=== PATIENT | male | born 1935 | race Caucasian/White ===

== ENCOUNTER 2017-02-07 06:18 | Day surgery (SDC) | payer MEDICARE, OTHER ==
[2017-02-07] MEDS ORDERED: ceFAZolin 2 GM/50 ML 50 ML IV ONE (06:24)
[2017-02-07] MEDS ORDERED: LACTATED RINGERS 1,000 ML IV ONE (06:55)
[2017-02-07] MEDS ORDERED: LIDOCAINE 1% 50 ML MDV SUBQ ONE ×2 (08:25)
[2017-02-07] MEDS ORDERED: BUPIVACAINE 0.5% PF 30 ML VIAL SUBQ ONE ×2 (08:25)
[2017-02-07] MEDS ORDERED: fentaNYL 100 MCG/2 ML VIAL IVP ONE (08:33)
[2017-02-07] MEDS ORDERED: LIDOCAINE-MPF 2% 5 ML VIAL IM ONE (08:33)
[2017-02-07] MEDS ORDERED: PROPOFOL 200 MG/20 ML VIAL IVP ONE (08:33)
[2017-02-07] MEDS ORDERED: ACETAMINOPHEN 1,000 MG/100 ML VIAL IV ONE (08:33)
== END 2017-02-07 06:19 | disposition home or self-care (01) ==
PROC: 01N50ZZ Release Median Nerve, Open Approach (ICD-10-PCS; principal; 2017-02-07 07:30)
DX: G56.01 Carpal tunnel syndrome, right upper limb (principal); E78.5 Hyperlipidemia, unspecified; F17.290 Nicotine dependence, other tobacco product, uncomplicated; I25.10 Atherosclerotic heart disease of native coronary artery without angina pectoris; I25.2 Old myocardial infarction; I10 Essential (primary) hypertension; K21.9 Gastro-esophageal reflux disease without esophagitis; Z79.82 Long term (current) use of aspirin; Z95.1 Presence of aortocoronary bypass graft; Z95.5 Presence of coronary angioplasty implant and graft
CPT/HCPCS: 64721; 80048; 85025; J0131; J0690; J7120

== ENCOUNTER 2017-07-11 08:53 | Outpatient (CLI) | payer MEDICARE, OTHER ==
[2017-07-11 13:08] LABS: BASOPHILS % (AUTO) 0.3 %; EOSINOPHILS % (AUTO) 1.2 %; HCT - HEMATOCRIT 36.7 % (42.0-52.0); HGB - HEMOGLOBIN 12.3 g/dL (14.0-18.0); LYMPHOCYTES # (AUTO) 1.1 10^3/uL (1.5-3.5); LYMPHOCYTES % (AUTO) 26.4 %; MEAN CORPUSCULAR HEMOGLOBIN 32.8 pg (27.0-31.0); MEAN CORPUSCULAR HGB CONC 33.5 g/dL (32.0-36.0); MEAN PLATELET VOLUME 9.1 fL (7.4-11.4); MONOCYTES # (AUTO) 0.5 10^3/uL (0.0-1.0); MONOCYTES % (AUTO) 13.3 %; NEUTROPHILS # (AUTO) 2.3 10^3/uL (1.5-6.6); NEUTROPHILS % (AUTO) 58.8 %; RED BLOOD COUNT 3.75 10^6/uL (4.70-6.10); RED CELL DISTRIBUTION WIDTH 13.8 % (12.0-15.0)
[2017-07-11 13:40] LABS: PSA FREE 1.3 ng/mL (0.16-2.81)
[2017-07-11 13:41] LABS: PSA TOTAL 15.97 ng/mL (0.000-2.000)
[2017-07-11 14:03] LABS: ALBUMIN/GLOBULIN RATIO 2.3 (1.0-2.2); BILIRUBIN,TOTAL 0.6 mg/dL (0.2-1.0); BUN - BLOOD UREA NITROGEN 26 mg/dL (6-20); CALCIUM 9.1 mg/dL (8.5-10.3); CARBON DIOXIDE - CO2 30 mmol/L (21-32); CHLORIDE 105 mmol/L (101-111); CHOL/HDL RATIO 2.4 (<5.0); CHOLESTEROL 132 mg/dL; CREATININE 1.3 mg/dL (0.6-1.2); GFR - MDRD 53 (>89); GLUCOSE 122 mg/dL (70-100); HDL CHOLESTEROL 54 mg/dL; LDL/HDL RATIO 1.1 (<3.6); POTASSIUM 4.2 mmol/L (3.5-5.0); SODIUM 142 mmol/L (135-145); TOTAL PROTEIN 6.2 g/dL (6.7-8.2); TRIGLYCERIDES 79 mg/dL; VLDL CHOLESTEROL 16 mg/dL
== END 2017-07-11 08:54 | disposition home or self-care (01) ==
LOC: LAB.WCP 08:53
PROVIDERS: ATTEND Family Medicine
DX: R73.01 Impaired fasting glucose (principal); E78.5 Hyperlipidemia, unspecified; D64.9 Anemia, unspecified; R97.20 Elevated prostate specific antigen [PSA]
CPT/HCPCS: 36415; 80053; 80061; 84154; 85025

== ENCOUNTER 2017-09-26 09:00 | Outpatient (CLI) | payer MEDICARE, OTHER | END 2017-09-26 09:01 | disposition home or self-care (01) | LOC: LAB.WCP 09:00 | PROVIDERS: ATTEND Urology | DX: R97.20 Elevated prostate specific antigen [PSA] (principal) | CPT/HCPCS: 36415; 84153; 84403 ==

== ENCOUNTER 2017-12-20 08:24 | Outpatient (CLI) | payer MEDICARE, OTHER ==
[2017-12-20 12:56] LABS: HB2 TOTAL 12.8 g/dL; HEMOGLOBIN A1C 0.35 g/dL; HEMOGLOBIN A1C % 4.7 % (4.6-6.2)
[2017-12-20 12:58] LABS: PSA TOTAL 0.51 ng/mL (0.000-2.000)
[2017-12-20 13:05] LABS: ALBUMIN 4.1 g/dL (3.2-5.5); ALBUMIN/GLOBULIN RATIO 1.9 (1.0-2.2); BILIRUBIN,TOTAL 0.5 mg/dL (0.2-1.0); CREATININE 1.2 mg/dL (0.6-1.2); TOTAL PROTEIN 6.3 g/dL (6.7-8.2)
== END 2017-12-20 08:25 | disposition home or self-care (01) ==
LOC: LAB.WCP 08:24
PROVIDERS: ATTEND Family Medicine
DX: I25.10 Atherosclerotic heart disease of native coronary artery without angina pectoris (principal); R73.01 Impaired fasting glucose; C61 Malignant neoplasm of prostate; K21.9 Gastro-esophageal reflux disease without esophagitis; R97.20 Elevated prostate specific antigen [PSA]
CPT/HCPCS: 36415; 80053; 83036; 84153; 84403

== ENCOUNTER 2018-06-26 08:00 | Outpatient (CLI) | payer MEDICARE, OTHER | END 2018-06-26 08:01 | disposition home or self-care (01) | LOC: LAB.WCP 08:00 | PROVIDERS: ATTEND Urology | DX: R97.20 Elevated prostate specific antigen [PSA] (principal) | CPT/HCPCS: 36415; 84153 ==

== ENCOUNTER 2018-07-26 09:45 | Outpatient (CLI) | payer MEDICARE, OTHER ==
[2018-07-26 12:54] LABS: BASOPHILS % (AUTO) 0.4 %; EOSINOPHILS # (AUTO) 0.1 10^3/uL (0.0-0.7); HGB - HEMOGLOBIN 11.2 g/dL (14.0-18.0); LYMPHOCYTES % (AUTO) 26.5 %; MEAN CORPUSCULAR HEMOGLOBIN 32.6 pg (27.0-31.0); MEAN CORPUSCULAR HGB CONC 33.8 g/dL (32.0-36.0); MEAN CORPUSCULAR VOLUME 96.6 fL (80.0-94.0); MONOCYTES # (AUTO) 0.4 10^3/uL (0.0-1.0); MONOCYTES % (AUTO) 12.4 %; NEUTROPHILS # (AUTO) 2.1 10^3/uL (1.5-6.6); NEUTROPHILS % (AUTO) 58.7 %; PLT - PLATELET COUNT 204 10^3/uL (130-450); RED BLOOD COUNT 3.44 10^6/uL (4.70-6.10); RED CELL DISTRIBUTION WIDTH 13.5 % (12.0-15.0); WHITE BLOOD COUNT 3.6 x10^3/uL (4.8-10.8)
[2018-07-26 13:02] LABS: ALBUMIN 4.1 g/dL (3.2-5.5); ALKALINE PHOSPHATASE 27 IU/L (42-121); ALT ALANINE AMINOTRANSFERASE 21 IU/L (10-60); AST ASPARTATE AMINOTRANSFERASE 28 IU/L (10-42); BILIRUBIN,TOTAL 0.6 mg/dL (0.2-1.0); BUN - BLOOD UREA NITROGEN 20 mg/dL (6-20); CALCIUM 9.3 mg/dL (8.5-10.3); CARBON DIOXIDE - CO2 24 mmol/L (21-32); CHLORIDE 107 mmol/L (101-111); CREATININE 1.1 mg/dL (0.6-1.2); GFR - MDRD 64 (>89); GLUCOSE 112 mg/dL (70-100); SODIUM 141 mmol/L (135-145); TOTAL PROTEIN 6.1 g/dL (6.7-8.2)
[2018-07-26 13:29] LABS: HB2 TOTAL 11.1 g/dL; HEMOGLOBIN A1C 0.25 g/dL; HEMOGLOBIN A1C % 4.2 % (4.6-6.2)
== END 2018-07-26 09:46 | disposition home or self-care (01) ==
LOC: LAB.WCP 09:45
PROVIDERS: ATTEND Family Medicine
DX: C61 Malignant neoplasm of prostate (principal); R73.01 Impaired fasting glucose; I10 Essential (primary) hypertension; M06.9 Rheumatoid arthritis, unspecified; E78.5 Hyperlipidemia, unspecified
CPT/HCPCS: 36415; 80053; 83036; 84443; 85025

== ENCOUNTER 2018-08-29 22:57 | Outpatient (CLI) | payer MEDICARE, OTHER ==
[2018-08-29 13:28] LABS: RHEUMATOID FACTOR POSITIVE (Negative)
[2018-08-29 13:36] LABS: CRP - C-REACTIVE PROTEIN < 1.0 mg/dL (0-1.0)
[2018-08-29 13:38] LABS: % IRON SATURATION 20 % (20-50); IRON 82 ug/dL (45-182); TOTAL IRON BINDING CAPACITY 419 ug/dL (250-450); TRANSFERRIN 299 mg/dL (180-329); URIC ACID 3.1 mg/dL (2.6-7.2)
== END 2018-08-29 22:58 | disposition home or self-care (01) ==
LOC: LAB.WCP 22:57
PROVIDERS: ATTEND Family Medicine
DX: D50.9 Iron deficiency anemia, unspecified (principal); M06.9 Rheumatoid arthritis, unspecified
CPT/HCPCS: 36415; 82728; 83540; 84466; 84550; 85651; 86038; 86140; 86200; 86430

== ENCOUNTER 2019-01-03 12:51 | Outpatient (CLI) | payer MEDICARE, OTHER | END 2019-01-03 12:52 | disposition home or self-care (01) | LOC: LAB.WCP 12:51 | PROVIDERS: ATTEND Urology | DX: C61 Malignant neoplasm of prostate (principal) | CPT/HCPCS: 36415; 84153; 84154 ==

== ENCOUNTER 2019-03-23 08:00 | Outpatient (CLI) | payer MEDICARE, OTHER ==
[2019-03-23 12:36] LABS: BASOPHILS % (AUTO) 0.6 %; EOSINOPHILS % (AUTO) 1.2 %; HGB - HEMOGLOBIN 10.2 g/dL (14.0-18.0); LYMPHOCYTES # (AUTO) 0.9 10^3/uL (1.5-3.5); LYMPHOCYTES % (AUTO) 25.3 %; MEAN CORPUSCULAR HEMOGLOBIN 28.8 pg (27.0-31.0); MEAN CORPUSCULAR VOLUME 89.7 fL (80.0-94.0); MEAN PLATELET VOLUME 8.8 fL (7.4-11.4); MONOCYTES # (AUTO) 0.5 10^3/uL (0.0-1.0); MONOCYTES % (AUTO) 13.1 %; NEUTROPHILS # (AUTO) 2.1 10^3/uL (1.5-6.6); NEUTROPHILS % (AUTO) 59.8 %; PLT - PLATELET COUNT 209 10^3/uL (130-450); RED BLOOD COUNT 3.53 10^6/uL (4.70-6.10); WHITE BLOOD COUNT 3.5 x10^3/uL (4.8-10.8)
[2019-03-23 13:02] LABS: ALBUMIN 3.8 g/dL (3.2-5.5); ALBUMIN/GLOBULIN RATIO 1.7 (1.0-2.2); BILIRUBIN,TOTAL 0.6 mg/dL (0.2-1.0); CALCIUM 8.9 mg/dL (8.5-10.3); TOTAL PROTEIN 6.1 g/dL (6.7-8.2)
== END 2019-03-23 23:59 | disposition home or self-care (01) ==
LOC: LAB.WCP 08:00
PROVIDERS: ATTEND Family Medicine
DX: D12.6 Benign neoplasm of colon, unspecified (principal); D50.9 Iron deficiency anemia, unspecified; M06.9 Rheumatoid arthritis, unspecified; C61 Malignant neoplasm of prostate; I10 Essential (primary) hypertension; I25.10 Atherosclerotic heart disease of native coronary artery without angina pectoris
CPT/HCPCS: 36415; 80053; 85025

== ENCOUNTER 2019-04-13 08:00 | Outpatient (CLI) | payer MEDICARE, OTHER ==
[2019-04-13 18:43] LABS: BASOPHILS % (AUTO) 0.2 %; EOSINOPHILS % (AUTO) 0.9 %; HGB - HEMOGLOBIN 9.6 g/dL (14.0-18.0); LYMPHOCYTES % (AUTO) 26.8 %; MEAN CORPUSCULAR HEMOGLOBIN 28.4 pg (27.0-31.0); MEAN CORPUSCULAR HGB CONC 31.9 g/dL (32.0-36.0); MONOCYTES # (AUTO) 0.4 10^3/uL (0.0-1.0); MONOCYTES % (AUTO) 10.6 %; NEUTROPHILS # (AUTO) 2.3 10^3/uL (1.5-6.6); NEUTROPHILS % (AUTO) 61.5 %; PLT - PLATELET COUNT 197 10^3/uL (130-450); RED BLOOD COUNT 3.38 10^6/uL (4.70-6.10); RED CELL DISTRIBUTION WIDTH 15.2 % (12.0-15.0); WHITE BLOOD COUNT 3.8 x10^3/uL (4.8-10.8)
[2019-04-13 19:00] LABS: ALBUMIN 3.8 g/dL (3.2-5.5); BILIRUBIN,TOTAL 0.6 mg/dL (0.2-1.0); CALCIUM 8.7 mg/dL (8.5-10.3); CREATININE 1.1 mg/dL (0.6-1.2); TOTAL PROTEIN 5.7 g/dL (6.7-8.2)
[2019-04-13 19:35] LABS: % IRON SATURATION 15 % (20-50); IRON 64 ug/dL (45-182); TOTAL IRON BINDING CAPACITY 413 ug/dL (250-450); TRANSFERRIN 295 mg/dL (180-329)
== END 2019-04-13 23:59 | disposition home or self-care (01) ==
LOC: LAB.WCP 08:00
PROVIDERS: ATTEND Internal Medicine Rheumatology
DX: D50.9 Iron deficiency anemia, unspecified (principal); M05.79 Rheumatoid arthritis with rheumatoid factor of multiple sites without organ or systems involvement; Z79.899 Other long term (current) drug therapy
CPT/HCPCS: 36415; 80053; 82728; 83540; 84466; 85025

== ENCOUNTER 2019-06-26 08:00 | Outpatient (CLI) | payer MEDICARE, OTHER ==
[2019-06-26 19:05] LABS: BASOPHILS % (AUTO) 0.2 %; EOSINOPHILS # (AUTO) 0.1 10^3/uL (0.0-0.7); EOSINOPHILS % (AUTO) 1.2 %; HGB - HEMOGLOBIN 11.1 g/dL (14.0-18.0); LYMPHOCYTES % (AUTO) 23.6 %; MEAN CORPUSCULAR HGB CONC 31.7 g/dL (32.0-36.0); MEAN CORPUSCULAR VOLUME 100.9 fL (80.0-94.0); MEAN PLATELET VOLUME 10.7 fL (7.4-11.4); MONOCYTES # (AUTO) 0.5 10^3/uL (0.0-1.0); MONOCYTES % (AUTO) 11.9 %; NEUTROPHILS # (AUTO) 2.6 10^3/uL (1.5-6.6); NEUTROPHILS % (AUTO) 62.9 %; PLT - PLATELET COUNT 199 10^3/uL (130-450); RED BLOOD COUNT 3.47 10^6/uL (4.70-6.10); RED CELL DISTRIBUTION WIDTH 14.4 % (12.0-15.0); WHITE BLOOD COUNT 4.2 x10^3/uL (4.8-10.8)
[2019-06-26 19:31] LABS: ALBUMIN 4.1 g/dL (3.2-5.5); BILIRUBIN,TOTAL 0.5 mg/dL (0.2-1.0); CALCIUM 9.2 mg/dL (8.5-10.3); TOTAL PROTEIN 6.1 g/dL (6.7-8.2)
[2019-06-26 20:15] LABS: % IRON SATURATION 47 % (20-50); IRON 177 ug/dL (45-182); TOTAL IRON BINDING CAPACITY 378 ug/dL (250-450); TRANSFERRIN 270 mg/dL (180-329)
== END 2019-06-26 23:59 | disposition home or self-care (01) ==
LOC: LAB.WCP 08:00
PROVIDERS: ATTEND Internal Medicine Rheumatology
DX: D50.9 Iron deficiency anemia, unspecified (principal); M05.79 Rheumatoid arthritis with rheumatoid factor of multiple sites without organ or systems involvement; Z79.899 Other long term (current) drug therapy
CPT/HCPCS: 36415; 80053; 82728; 83540; 84466; 85025

== ENCOUNTER 2019-07-17 08:00 | Outpatient (CLI) | payer MEDICARE, OTHER | END 2019-07-17 23:59 | disposition home or self-care (01) | LOC: LAB.WCP 08:00 | PROVIDERS: ATTEND Urology | DX: C61 Malignant neoplasm of prostate (principal) | CPT/HCPCS: 36415; 84153 ==

== ENCOUNTER 2019-07-31 08:00 | Outpatient (CLI) | payer MEDICARE, OTHER ==
[2019-07-31 13:00] LABS: CHOL/HDL RATIO 2.6 (<5.0); CHOLESTEROL 141 mg/dL; HDL CHOLESTEROL 55 mg/dL; LDL CHOLESTEROL,CALCULATED 64 mg/dL; LDL/HDL RATIO 1.2 (<3.6); VLDL CHOLESTEROL 22 mg/dL
== END 2019-07-31 23:59 | disposition home or self-care (01) ==
LOC: LAB.WCP 08:00
PROVIDERS: ATTEND Family Medicine
DX: I25.10 Atherosclerotic heart disease of native coronary artery without angina pectoris (principal); E78.5 Hyperlipidemia, unspecified
CPT/HCPCS: 36415; 80061; 83721

== ENCOUNTER 2019-09-11 06:19 | Day surgery (SDC) | payer MEDICARE, OTHER ==
[2019-09-11] MEDS ORDERED: LACTATED RINGERS 1,000 ML IV ONE ×2 (06:50→08:05)
[2019-09-11] MEDS ORDERED: LIDO GARGLE 30 ML BOTTLE ONE (07:05)
[2019-09-11] MEDS ORDERED: LIDO GARGLE 30 ML BOTTLE PO ONE ×2 (07:09→07:33)
[2019-09-11] MEDS ORDERED: MIDAZOLAM 2 MG/2 ML VIAL IVP ONE (07:34)
[2019-09-11] MEDS ORDERED: fentaNYL 250 MCG/5 ML VIAL IVP ONE (07:34)
[2019-09-11 09:56] VITALS: BP 143/74
== END 2019-09-11 06:20 | disposition home or self-care (01) ==
LOC: SDS 06:19
PROVIDERS: ATTEND Internal Medicine Gastroenterology
PROC: 0DB78ZX Excision of Stomach, Pylorus, Via Natural or Artificial Opening Endoscopic, Diagnostic (ICD-10-PCS; 2019-09-11)
PROC: 0DB68ZZ Excision of Stomach, Via Natural or Artificial Opening Endoscopic (ICD-10-PCS; 2019-09-11)
PROC: 0DBH8ZZ Excision of Cecum, Via Natural or Artificial Opening Endoscopic (ICD-10-PCS; principal; 2019-09-11 07:30)
PROC: 0DB98ZX Excision of Duodenum, Via Natural or Artificial Opening Endoscopic, Diagnostic (ICD-10-PCS; 2019-09-11 07:30)
DX: D50.9 Iron deficiency anemia, unspecified (principal); D12.0 Benign neoplasm of cecum; K57.30 Diverticulosis of large intestine without perforation or abscess without bleeding; K29.50 Unspecified chronic gastritis without bleeding; K31.7 Polyp of stomach and duodenum; K21.9 Gastro-esophageal reflux disease without esophagitis; E66.9 Obesity, unspecified; I10 Essential (primary) hypertension; I25.10 Atherosclerotic heart disease of native coronary artery without angina pectoris; F17.290 Nicotine dependence, other tobacco product, uncomplicated; Z79.899 Other long term (current) drug therapy; Z79.82 Long term (current) use of aspirin; Z95.1 Presence of aortocoronary bypass graft; Z95.5 Presence of coronary angioplasty implant and graft; Z80.0 Family history of malignant neoplasm of digestive organs; Z68.36 Body mass index [BMI] 36.0-36.9, adult
CPT/HCPCS: 43239; 45380; 87081; A9270; J3010; J7120

== ENCOUNTER 2019-10-02 13:42 | Outpatient (CLI) | payer MEDICARE, OTHER ==
[2019-10-02] MEDS ORDERED: IOVERSOL 320 100 ML VIAL IVP ONE ×2 (13:47→14:59)
[2019-10-02] MEDS ORDERED: IOVERSOL 320 50 ML VIAL ONE (13:47)
[2019-10-02 14:26] LABS: CREATININE 1.1 mg/dL (0.6-1.2)
[2019-10-02] MEDS ORDERED: IOVERSOL 320 50 ML VIAL PO ONE (14:59)
--- NOTE | 2019-10-03 15:49 | CT Report ---
Reason: ANEMIA IRON DEFICIENCY Procedure Date: 10/02/2019 Accession Number: [id number] / [id number] Procedure: CT - Abdomen/Pelvis W CPT Code: Final Report FULL RESULT: EXAM: CT ABDOMEN AND PELVIS EXAM DATE: 10/02/2019 02:58 PM. CLINICAL HISTORY: Anemia iron deficiency. COMPARISONS: None. TECHNIQUE: Routine helical CT imaging was performed through the abdomen and pelvis. IV contrast: Optiray-320 100 mL. Enteric contrast: Yes. Reconstructions: Coronal and sagittal. In accordance with CT protocol optimization, one or more of the following dose reduction techniques were utilized for this exam: automated exposure control, adjustment of mA and/or KV based on patient size, or use of iterative reconstructive technique. FINDINGS: Lung Bases: Unremarkable. Mild to moderate coronary artery calcifications. Borderline cardiac enlargement. Liver: Mild diffuse decreased density is consistent with fatty infiltration. There is a benign bilobed cyst, or 2 abutting cysts, within the left lobe measuring up to 4.9 cm. There are numerous additional very small focal hypodensities many of which are too small to definitely characterize but likely all represent cysts. No definite masses. Gallbladder/Bile Ducts: The gallbladder is contracted and contains a 2.1 cm stone. No surrounding inflammation or biliary ductal dilatation demonstrated. Spleen: There is a 4.0 x 4.3 cm cystic lesion with some linear and nodular calcifications within its wall and some mild peripheral septation that is probably calcified. No definite soft tissue nodular components. This is of undocumented age but likely represents a benign finding such as prior infection or hemorrhage. Pancreas: Normal. Adrenal Glands: Normal. Kidneys: 1.5 cm left upper pole cyst. No masses or hydronephrosis. Peritoneal Cavity/Bowel: No free fluid, free air or adenopathy. No masses or acute inflammatory process.The appendix is well visualized and normal. Colonic diverticulosis without evidence of diverticulitis. Pelvic Organs: Mild prostate prominence with heterogeneous enhancement including an area of more focal anterior right enhancement measuring approximately 3.2 cm. The bladder appears unremarkable. Vasculature: Moderate calcifications, without aneurysm. Bones: Degenerative disease of the spine, SI joints and less so the hips and the pubic symphysis with apparent cystic posterior capsular distention at the level of the pubic symphysis. Other: None. IMPRESSION: 1. No definite acute abnormality of the abdomen or pelvis. 2. Complex, peripherally calcified 4.3 cm cystic splenic lesion likely represents a benign finding, as discussed above, although it is of undocumented chronicity. 3. Mildly prominent prostate with heterogeneous, nodular enhancement. 4. Cholelithiasis. 5. Chronic findings, as above. RADIA
== END 2019-10-02 13:43 | disposition home or self-care (01) ==
LOC: DI 13:42
PROVIDERS: ATTEND Internal Medicine Gastroenterology
DX: D50.9 Iron deficiency anemia, unspecified (principal); D73.4 Cyst of spleen; N40.0 Benign prostatic hyperplasia without lower urinary tract symptoms; K80.20 Calculus of gallbladder without cholecystitis without obstruction
CPT/HCPCS: 36415; 74177; 82565; Q9967

== ENCOUNTER 2020-06-25 08:12 | Emergency (ER) | payer MEDICARE, OTHER ==
--- NOTE | 2020-06-25 08:38 | ED Physician Documentation ---
PD HPI DYSPNEA - Stated complaint Stated Complaint: SOA - Chief complaint Chief Complaint: Resp - History obtained from History obtained from: Patient - History of Present Illness Timing - onset: How many days ago (couple of days of increasing dyspnea, worse this morning. Improved enroute here.) Timing - onset during: No: Exertion Timing - duration: Days Timing - details: Gradual onset, Still present Inciting event(s): No: Out of meds, URI, Immobilization/travel Worsened by: Exertion, Laying flat Associated symptoms: Bilateral edema (chronic with some increase recently). No: Fever, Cough, Wheezing Similar symptoms before: Has not had sx before Recently seen: Clinic (had low K and so was started on supplement and had Lasix decreased 40 mg to 20 mg few weeks ago.) Review of Systems Constitutional: denies: Fever, Chills, Myalgias Nose: denies: Rhinorrhea / runny nose, Congestion Throat: denies: Sore throat Respiratory: denies: Cough GI: denies: Nausea, Vomiting, Diarrhea, Bloody / black stool Musculoskeletal: reports: Extremity swelling Neurologic: denies: Generalized weakness, Focal weakness, Numbness, Altered mental status, Headache PD PAST MEDICAL HISTORY - Past Medical History Cardiovascular: Hypertension, High cholesterol, Coronary artery disease, [place] Respiratory: None Endocrine/Autoimmune: None GI: GERD, Hiatal hernia, Colon polyps : Benign prostate hypertrophy HEENT: Chronic vision loss Psych: None Musculoskeletal: Osteoarthritis, Rheumatoid arthritis, Chronic back pain Derm: Other - Past Surgical History General: Colonoscopy, Other Ortho: Knee replacement Cardiovascular: CABG, Coronary stent HEENT: Cataracts, Tonsil/Adenoidectomy - Present Medications Home Medications: Ambulatory Orders Medication Instructions Recorded Confirmed lisinopriL [Zestril] 20 mg PO BID 01/18/14 09/10/19 Fenofibrate 160 mg PO QDAC 03/01/14 09/11/19 Finasteride 5 mg PO QDAC 03/01/14 09/11/19 Furosemide [Lasix] 1 mg PO DAILY 03/01/14 09/11/19 Esomeprazole Magnesium [Nexium] 40 mg PO DAILY 03/04/14 09/11/19 Rosuvastatin [Crestor] 10 mg PO DAILY 03/04/14 09/11/19 sulfaSALAzine [Azulfidine] 1,000 mg PO BID 03/04/14 09/10/19 Carvedilol [Coreg] 25 mg PO BID 06/12/14 09/10/19 amLODIPine [Norvasc] 5 mg PO DAILY 09/10/16 09/11/19 hydrALAZINE [Apresoline] 25 mg PO BID 09/10/16 09/11/19 Ferrous Gluconate [Iron] 240 mg PO DAILY 09/10/19 09/11/19 Leuprolide [Lupron] 7.5 mg IM DAILY 09/10/19 09/11/19 Aspirin [Adult Aspirin Regimen] 1 DAILY 09/11/19 - Allergies Allergies/Adverse Reactions: Allergies Allergy/AdvReac Type Severity Reaction Status Date / Time atorvastatin calcium * Allergy Severe Anaphylaxis Verified 06/25/20 08:34 [From Lipitor] amoxicillin [Amoxicillin] Allergy Intermediate Rash Verified 06/25/20 08:34 PD ED PE NORMAL - Vitals Vital signs reviewed: Yes - General General: Alert and oriented X 3, No acute distress, Well developed/nourished - HEENT HEENT: Pharynx benign - Neck Neck: Supple, no meningeal sign, No adenopathy - Cardiac Cardiac: RRR, No murmur - Respiratory Respiratory: Other (no coarse sounds; some fine crackles in the bases.) - Abdomen Abdomen: Soft, Non tender - Derm Derm: Normal color, Warm and dry - Extremities Extremities: No tenderness to palpate, Normal ROM s pain, No calf tenderness / cord, Other (2+ edema in both legs from knees down. No redness/rash.) - Neuro Neuro: Alert and oriented X 3, No motor deficit, Normal speech Results - Vitals Vitals: Vital Signs - 24 hr 06/25/20 06/25/20 06/25/20 08:25 09:42 10:33 Temperature 36.5 C Heart Rate 68 73 75 Respiratory 24 22 22 Rate Blood Pressure 184/90 H 184/86 H O2 Saturation 96 96 06/25/20 11:25 Temperature 36.8 C Heart Rate 65 Respiratory 21 Rate Blood Pressure 130/89 H O2 Saturation 95 Oxygen O2 Source [With Activity] Room air O2 Source [Without Activity] Room air O2 Source Room air - EKG (time done) 08:24 Rate: Rate (enter#) (68) Rhythm: NSR [place]: Normal Intervals: Normal DC, Other (frequent PVCs) QRS: Normal Ischemia: Normal ST segments. No: ST elevation c/w ischemia, ST depression - Labs Labs: Laboratory Tests 06/25/20 06/25/20 06/25/20 09:00 09:00 09:00 WBC 4.1 L RBC 3.08 L Hgb 10.2 L Hct 31.6 L MCV 102.6 H MCH 33.1 H MCHC 32.3 RDW 13.4 Plt Count 179 MPV 10.7 Neut # (Auto) 2.9 Lymph # (Auto) 0.7 L Hughes # (Auto) 0.4 Eos # (Auto) 0.0 Baso # (Auto) 0.0 Absolute Nucleated RBC 0.00 Nucleated RBC % 0.0 Sodium 140 Potassium 3.5 Chloride 108 Carbon Dioxide 21 Anion Gap 11.0 BUN 24 H Creatinine 1.1 Estimated GFR (MDRD) 63 L Glucose 120 H Calcium 8.9 Magnesium 1.8 Total Bilirubin 0.9 AST 28 ALT 22 Alkaline Phosphatase 26 L Troponin I High Sens 17.7 B-Natriuretic Peptide Total Protein 5.5 L Albumin 3.9 Globulin 1.6 L Albumin/Globulin Ratio 2.4 H Lipase 37 06/25/20 09:00 WBC RBC Hgb Hct MCV MCH MCHC RDW Plt Count MPV Neut # (Auto) Lymph # (Auto) Hughes # (Auto) Eos # (Auto) Baso # (Auto) Absolute Nucleated RBC Nucleated RBC % Sodium Potassium Chloride Carbon Dioxide Anion Gap BUN Creatinine Estimated GFR (MDRD) Glucose Calcium Magnesium Total Bilirubin AST ALT Alkaline Phosphatase Troponin I High Sens B-Natriuretic Peptide 1260 H Total Protein Albumin Globulin Albumin/Globulin Ratio Lipase - Rads (name of study) chest xray Radiology: Prelim report reviewed (no infiltrates; some increased vascular congestion), See rad report PD MEDICAL DECISION MAKING - ED course Complexity details: reviewed results, re-evaluated patient, considered differential (consider lung such as asthma, versus infectious. He does have history of CAD and had been on higher Lasix (recently decreased from 40 to 20 mg daily) so may be fluid accumulations, as does have leg edema. ), d/w patient Departure - Departure Disposition: 01 Home, Self Care Clinical Impression: Dyspnea Qualifiers: Dyspnea type: dyspnea on exertion Qualified Code(s): R06.00 - Dyspnea, unspecified Congestive heart failure Qualifiers: Heart failure type: unspecified Heart failure chronicity: acute on chronic Qualified Code(s): I50.9 - Heart failure, unspecified Condition: Stable Record reviewed to determine appropriate education?: Yes Instructions: ED CHF General Follow-Up: Sudeep Larios MD [Primary Care Provider] - Comments: Your chest x-ray does not show any signs of pneumonia or acute infection. It does look like some fluid accumulation in your blood test would correlate with that. So looks like some congestive heart failure. I would increase your furosemide back to 40 mg daily. Follow-up with your primary care next week, call today for an appointment. Return if not improving well over the next several days or if worsening. Discharge Date/Time: 06/25/20 11:25
[2020-06-25] MEDS ORDERED: ALBUTEROL 1 PUFF INH STA (09:00)
--- NOTE | 2020-06-25 09:05 | XRAY Report ---
PROCEDURE: Chest 1 View X-Ray INDICATIONS: Chest pain TECHNIQUE: One view of the chest was acquired. COMPARISON: FINDINGS: Surgical changes and devices: Sternotomy wires, probable prior CABG.. Lungs and pleura: No pleural effusions or pneumothorax. Lungs are mildly abnormal, with a mild degr ee of interstitial prominence in this patient with global cardiomegaly. This may reflect a slight deg ree of congestive heart failure but also could simply represent interstitial prominence from prior sm oking history, for example.. Mediastinum: Mediastinal contours appear normal. Heart size is globally enlarged. Bones and chest wall: No suspicious bony lesions. Overlying soft tissues appear unremarkable. IMPRESSION: Global cardiomegaly, prior CABG. Suspect chronic CHF with possible superimposed slight acute exacerba tion. Reviewed by: Luis Alfredo Rudd MD on 06/25/2020 9:04 AM PDT Approved by: Luis Alfredo Rudd MD on 06/25/2020 9:04 AM PDT Station ID: [id number]
[2020-06-25 09:11] LABS: BASOPHILS % (AUTO) 0.2 %; EOSINOPHILS % (AUTO) 0.7 %; HGB - HEMOGLOBIN 10.2 g/dL (14.0-18.0); LYMPHOCYTES # (AUTO) 0.7 10^3/uL (1.5-3.5); LYMPHOCYTES % (AUTO) 18.1 %; MEAN CORPUSCULAR HEMOGLOBIN 33.1 pg (27.0-31.0); MEAN CORPUSCULAR HGB CONC 32.3 g/dL (32.0-36.0); MEAN CORPUSCULAR VOLUME 102.6 fL (80.0-94.0); MEAN PLATELET VOLUME 10.7 fL (7.4-11.4); MONOCYTES # (AUTO) 0.4 10^3/uL (0.0-1.0); MONOCYTES % (AUTO) 10.5 %; NEUTROPHILS # (AUTO) 2.9 10^3/uL (1.5-6.6); NEUTROPHILS % (AUTO) 70.3 %; PLT - PLATELET COUNT 179 10^3/uL (130-450); RED BLOOD COUNT 3.08 10^6/uL (4.70-6.10); RED CELL DISTRIBUTION WIDTH 13.4 % (12.0-15.0); WHITE BLOOD COUNT 4.1 x10^3/uL (4.8-10.8)
[2020-06-25] MEDS ORDERED: FUROSEMIDE 20 MG/2 ML VIAL IVP STA (09:23)
[2020-06-25 09:43] LABS: ALBUMIN 3.9 g/dL (3.2-5.5); ALBUMIN/GLOBULIN RATIO 2.4 (1.0-2.2); BILIRUBIN,TOTAL 0.9 mg/dL (0.2-1.0); CALCIUM 8.9 mg/dL (8.5-10.3); CREATININE 1.1 mg/dL (0.6-1.2); MAGNESIUM 1.8 mg/dL (1.7-2.8); TOTAL PROTEIN 5.5 g/dL (6.7-8.2)
[2020-06-25 11:27] VITALS: BP 130/89
== END 2020-06-25 11:25 | disposition home or self-care (01) ==
LOC: ED 08:12
DX: I50.9 Heart failure, unspecified (principal); I11.0 Hypertensive heart disease with heart failure
CPT/HCPCS: 36415; 71045; 80053; 83690; 83735; 83880; 84484; 85025; 93005; 94640; 96374; 99284

== ENCOUNTER 2020-07-09 08:00 | Outpatient (CLI) | payer MEDICARE, OTHER ==
[2020-07-09 11:44] LABS: HGB - HEMOGLOBIN 10.1 g/dL (14.0-18.0); MEAN CORPUSCULAR HEMOGLOBIN 31.7 pg (27.0-31.0); MEAN CORPUSCULAR HGB CONC 31.9 g/dL (32.0-36.0); MEAN CORPUSCULAR VOLUME 99.4 fL (80.0-94.0); MEAN PLATELET VOLUME 10.9 fL (7.4-11.4); RED BLOOD COUNT 3.19 10^6/uL (4.70-6.10); RED CELL DISTRIBUTION WIDTH 13.1 % (12.0-15.0); WHITE BLOOD COUNT 4.2 x10^3/uL (4.8-10.8)
[2020-07-09 11:55] LABS: CALCIUM 8.8 mg/dL (8.5-10.3); CREATININE 1.2 mg/dL (0.6-1.2)
== END 2020-07-09 08:01 | disposition home or self-care (01) ==
LOC: LAB.WCP 08:00
PROVIDERS: ATTEND Family Medicine
DX: I50.9 Heart failure, unspecified (principal); C61 Malignant neoplasm of prostate
CPT/HCPCS: 36415; 80048; 83880; 84153; 85027

== ENCOUNTER 2020-07-15 10:13 | Outpatient (CLI) | payer MEDICARE, OTHER | END 2020-07-15 10:14 | disposition home or self-care (01) | LOC: DI 10:13 | PROVIDERS: ATTEND Family Medicine | DX: I27.20 Pulmonary hypertension, unspecified (principal); I34.0 Nonrheumatic mitral (valve) insufficiency; R00.1 Bradycardia, unspecified; I07.1 Rheumatic tricuspid insufficiency | CPT/HCPCS: 93306 ==

== ENCOUNTER 2020-08-28 16:26 | Inpatient (IN) | payer MEDICARE, OTHER ==
--- NOTE | 2020-08-28 16:59 | XRAY Report ---
PROCEDURE: Chest 1 View X-Ray INDICATIONS: Chest Pain TECHNIQUE: One view of the chest was acquired. COMPARISON: Chest x-ray 06/25/2020 FINDINGS: Surgical changes and devices: Sternal wires consistent with previous bypass procedure are noted. Lungs and pleura: No pleural effusions or pneumothorax. Lungs are clear. Mediastinum: Mediastinal contours appear normal. Heart size is enlarged. Bones and chest wall: No suspicious bony lesions. Overlying soft tissues appear unremarkable. IMPRESSION: No acute pulmonary process. Reviewed by: Rach Pryor MD on 08/28/2020 4:58 PM PDT Approved by: Rach Pryor MD on 08/28/2020 4:58 PM PDT Station ID: [id number]
[2020-08-28 17:02] LABS: BASOPHILS % (AUTO) 0.2 %; EOSINOPHILS % (AUTO) 0.2 %; HGB - HEMOGLOBIN 7.2 g/dL (14.0-18.0); LYMPHOCYTES # (AUTO) 0.9 10^3/uL (1.5-3.5); LYMPHOCYTES % (AUTO) 21.2 %; MEAN CORPUSCULAR HEMOGLOBIN 28.7 pg (27.0-31.0); MEAN CORPUSCULAR HGB CONC 31.3 g/dL (32.0-36.0); MEAN CORPUSCULAR VOLUME 91.6 fL (80.0-94.0); MEAN PLATELET VOLUME 10.1 fL (7.4-11.4); MONOCYTES # (AUTO) 0.6 10^3/uL (0.0-1.0); MONOCYTES % (AUTO) 12.9 %; NEUTROPHILS # (AUTO) 2.8 10^3/uL (1.5-6.6); PLT - PLATELET COUNT 271 10^3/uL (130-450); RED BLOOD COUNT 2.51 10^6/uL (4.70-6.10); RED CELL DISTRIBUTION WIDTH 14.6 % (12.0-15.0); WHITE BLOOD COUNT 4.3 x10^3/uL (4.8-10.8)
[2020-08-28 17:13] LABS: ALBUMIN 3.9 g/dL (3.2-5.5); ALBUMIN/GLOBULIN RATIO 2.2 (1.0-2.2); CALCIUM 8.9 mg/dL (8.5-10.3); CREATININE 1.5 mg/dL (0.6-1.2); TOTAL PROTEIN 5.7 g/dL (6.7-8.2)
[2020-08-28 17:15] LABS: INR 1.3 (0.8-1.2); PT - PROTHROMBIN TIME 14.5 secs (9.9-12.6)
[2020-08-28 17:22] LABS: PARTIAL THROMBOPLASTIN TIME 29.9 secs (24.9-33.3)
--- NOTE | 2020-08-28 17:31 | ED Physician Documentation ---
History of Present Illness - Stated complaint Stated Complaint: SOA - Chief complaint Chief Complaint: Resp - Additonal information Additional information: 85-year-old Male presents to the emergency department for evaluation of worsening dyspnea. He reports to me that he was seen in June for this and noted to have an elevated BNP. He has subsequently been referred to cardiology and has a follow-up appointment on 23 September. He did have an echocardiogram completed here at the beginning of July that showed an ejection fraction of 50% with global hypokinesis. There is also associated pulmonary hypertension, mitral valve regurg, and aortic regurg. This gentleman is taking a number of medications including a diuretic and reports compliance. However over the last 2 months he has noted increasing dyspnea of exertion and near syncope especially when in the grocery store. He denies that he is having any chest pain. He reported to the triage nurse that he was dying Review of Systems Constitutional: reports: Reviewed and negative Ears: reports: Reviewed and negative Nose: reports: Reviewed and negative Throat: reports: Reviewed and negative Cardiac: reports: Pedal edema (chronic and ongoing. unchanged). denies: Chest pain / pressure, Palpitations Respiratory: reports: Dyspnea, Cough GI: denies: Abdominal Pain, Abdominal Swelling, Nausea, Vomiting : reports: Reviewed and negative Skin: reports: Rash Neurologic: reports: Reviewed and negative PD PAST MEDICAL HISTORY - Past Medical History Cardiovascular: Hypertension, High cholesterol, Coronary artery disease, [place] Respiratory: None Endocrine/Autoimmune: None GI: GERD, Hiatal hernia, Colon polyps : Benign prostate hypertrophy HEENT: Chronic vision loss Psych: None Musculoskeletal: Osteoarthritis, Rheumatoid arthritis, Chronic back pain Derm: Other - Past Surgical History General: Colonoscopy, Other Ortho: Knee replacement Cardiovascular: CABG, Coronary stent HEENT: Cataracts, Tonsil/Adenoidectomy - Present Medications Home Medications: Ambulatory Orders Medication Instructions Recorded Confirmed lisinopriL [Zestril] 20 mg PO BID 01/18/14 08/28/20 Finasteride 5 mg PO QDAC 03/01/14 08/28/20 Furosemide [Lasix] 40 mg PO DAILY 03/01/14 08/28/20 Rosuvastatin [Crestor] 10 mg PO DAILY 03/04/14 08/28/20 sulfaSALAzine [Azulfidine] 1,500 mg PO BID 03/04/14 08/28/20 Carvedilol [Coreg] 25 mg PO BID 06/12/14 08/28/20 amLODIPine [Norvasc] 5 mg PO DAILY 09/10/16 08/28/20 hydrALAZINE [Apresoline] 25 mg PO BID 09/10/16 08/28/20 Aspirin [Adult Aspirin Regimen] 81 mg PO DAILY 09/11/19 08/28/20 Cetirizine [ZyrTEC] 10 mg PO DAILY 08/28/20 08/28/20 Nitroglycerin [Nitrostat] 0.4 mg SL Q5MIN PRN 08/28/20 08/28/20 Pantoprazole [Protonix] 40 mg PO DAILY 08/28/20 08/28/20 - Allergies Allergies/Adverse Reactions: Allergies Allergy/AdvReac Type Severity Reaction Status Date / Time atorvastatin calcium * Allergy Severe Anaphylaxis Verified 08/28/20 16:37 [From Lipitor] amoxicillin [Amoxicillin] Allergy Intermediate Rash Verified 08/28/20 16:37 - Social History Does the pt smoke?: No Smoking Status: Never smoker PD ED PE EXPANDED - General General: Alert, No acute distress - HEENT HEENT: PERRL, EOMI - Neck Neck: Supple w/out meningeal sx. No: Adenopathy - Cardiac Cardiac: Regular Rate, Murmur Present, Radial strong equal, Femoral strong equal, Pedal strong equal, Cap refill < 2 sec - Respiratory Respiratory: Clear to ausultation zeferino. No: Distress, Labored - Abdomen Abdomen: Normal Bowel sounds. No: Tender to palpation - Rectal Rectal: Hemorrhoid, Normal Tone, Other (Digital rectal exam completed. This very small amount of brown stool in vault no melena) - Neuro Neuro: Alert and Oriented X 3, CNII-XII intact, Normal gait, Normal finger nose, Normal speech - GCS Eye Opening: Spontaneous Motor: Obeys Commands Verbal: Oriented Total: 15 Results - Vitals Vitals: Vital Signs - 24 hr 08/28/20 08/28/20 08/28/20 16:32 17:04 18:00 Temperature 36.3 C L Heart Rate 69 65 59 L Respiratory 22 20 23 Rate Blood Pressure 148/31 H 136/54 H 140/81 H O2 Saturation 97 99 100 08/28/20 18:45 Temperature Heart Rate 60 Respiratory 16 Rate Blood Pressure 145/75 H O2 Saturation 99 Oxygen O2 Source [] Room air O2 Source [] Room air O2 Source Room air - EKG (time done) 1652 Rate: Rate (enter#) (70) Rhythm: NSR Intervals: Prolonged QT, RBBB, Other (multiple PVC) QRS: Normal Ischemia: Normal ST segments Compare to prior EKG: Unchanged from prior EKG Computer interpretation: Agree with computer - Labs Labs: Laboratory Tests 08/28/20 08/28/20 08/28/20 16:50 16:50 16:50 WBC 4.3 L RBC 2.51 L Hgb 7.2 L Hct 23.0 L MCV 91.6 MCH 28.7 MCHC 31.3 L RDW 14.6 Plt Count 271 MPV 10.1 Neut # (Auto) 2.8 Lymph # (Auto) 0.9 L [place] # (Auto) 0.6 Eos # (Auto) 0.0 Baso # (Auto) 0.0 Absolute Nucleated RBC 0.00 Nucleated RBC % 0.0 PT 14.5 H INR 1.3 H APTT 29.9 Sodium 139 Potassium 3.8 Chloride 108 Carbon Dioxide 22 Anion Gap 9.0 BUN 33 H Creatinine 1.5 H Estimated GFR (MDRD) 44 L Glucose 137 H Calcium 8.9 Total Bilirubin 1.0 AST 31 ALT 24 Alkaline Phosphatase 30 L Troponin I High Sens B-Natriuretic Peptide Total Protein 5.7 L Albumin 3.9 Globulin 1.8 L Albumin/Globulin Ratio 2.2 Lipase 65 H 08/28/20 08/28/20 16:50 16:50 WBC RBC Hgb Hct MCV MCH MCHC RDW Plt Count MPV Neut # (Auto) Lymph # (Auto) [place] # (Auto) Eos # (Auto) Baso # (Auto) Absolute Nucleated RBC Nucleated RBC % PT INR APTT Sodium Potassium Chloride Carbon Dioxide Anion Gap BUN Creatinine Estimated GFR (MDRD) Glucose Calcium Total Bilirubin AST ALT Alkaline Phosphatase Troponin I High Sens 18.6 B-Natriuretic Peptide 1102 H Total Protein Albumin Globulin Albumin/Globulin Ratio Lipase - Rads (name of study) CXR Radiology: Final report received (No acute cardiopulmonary process) PD MEDICAL DECISION MAKING - ED course Complexity details: reviewed old records, reviewed results, re-evaluated patient, considered differential, d/w patient ED course: 85-year-old male presents the emergency department for evaluation of worsening dyspnea. He does have a known history of heart failure. Today on EKG he continues with a right bundle branch block but a negative troponin. His BNP remains elevated at just over 1100 but this is reduced from a high of 1900 and June 2020. However today he has a marked anemia. Hemoglobin has declined nearly 3 g over the last 3 months. I completed a digital rectal exam on this gentleman and there was only a small amount of brown blood in his rectal vault. I have discussed this case with hospitalist Dr. Royer Calvillo who is agreed to bring the patient in on an observation status for treatment of a symptomatic anemia and dyspnea. Care to include transfusion of 1 unit PRBCs and mild diuresis. Departure - Departure Disposition: ED Place in Observation Clinical Impression: Renal insufficiency Anemia Qualifiers: Anemia type: unspecified type Qualified Code(s): D64.9 - Anemia, unspecified Dyspnea Qualifiers: Dyspnea type: dyspnea on exertion Qualified Code(s): R06.00 - Dyspnea, unspecified CHF (congestive heart failure) Qualifiers: Heart failure type: unspecified Heart failure chronicity: acute on chronic Qualified Code(s): I50.9 - Heart failure, unspecified
[2020-08-28] MEDS ORDERED: ONDANSETRON 4 MG/2 ML VIAL IVP PRN (19:26)
[2020-08-28] MEDS ORDERED: PANTOPRAZOLE 40 MG VIAL IVP SCH (19:26)
[2020-08-28] MEDS ORDERED: SODIUM CHLORIDE FLUSH 0.9% 10 ML SYRINGE IVP PRN (19:26)
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
[2020-08-28] MEDS ORDERED: FUROSEMIDE 40 MG/4 ML VIAL IVP STA (21:39)
[2020-08-28] MEDS ORDERED: ROSUVASTATIN 10 MG PO SCH (22:15)
[2020-08-28 22:18] LABS: % IRON SATURATION 5 % (20-50); IRON 26 ug/dL (45-182); TOTAL IRON BINDING CAPACITY 503 ug/dL (250-450); TRANSFERRIN 359 mg/dL (180-329)
[2020-08-29] MEDS: SODIUM CHLORIDE FLUSH 0.9% 10 ML SYRINGE IVP SCH ×3 (00:27→16:22)
[2020-08-29] MEDS: carvediloL 12.5 MG TABLET PO SCH ×3 (00:38→21:10)
[2020-08-29 05:22] LABS: BASOPHILS % (AUTO) 0.2 %; EOSINOPHILS % (AUTO) 0.2 %; HGB - HEMOGLOBIN 7.4 g/dL (14.0-18.0); LYMPHOCYTES % (AUTO) 21.6 %; MEAN CORPUSCULAR HEMOGLOBIN 27.7 pg (27.0-31.0); MEAN CORPUSCULAR HGB CONC 30.2 g/dL (32.0-36.0); MEAN CORPUSCULAR VOLUME 91.8 fL (80.0-94.0); MEAN PLATELET VOLUME 10.3 fL (7.4-11.4); MONOCYTES # (AUTO) 0.6 10^3/uL (0.0-1.0); MONOCYTES % (AUTO) 12.1 %; NEUTROPHILS # (AUTO) 3.2 10^3/uL (1.5-6.6); NEUTROPHILS % (AUTO) 65.7 %; PLT - PLATELET COUNT 230 10^3/uL (130-450); RED BLOOD COUNT 2.67 10^6/uL (4.70-6.10); RED CELL DISTRIBUTION WIDTH 14.6 % (12.0-15.0); WHITE BLOOD COUNT 4.8 x10^3/uL (4.8-10.8)
[2020-08-29 05:38] LABS: CALCIUM 8.5 mg/dL (8.5-10.3); CREATININE 1.5 mg/dL (0.6-1.2); PHOSPHORUS 3.3 mg/dL (2.5-4.6)
[2020-08-29 06:04] LABS: FOLATE 8.11 ng/mL (5.90 - >24.8)
[2020-08-29] MEDS: FINASTERIDE 5 MG TABLET PO SCH (06:34)
[2020-08-29] MEDS ORDERED: POTASSIUM CHLORIDE 20 MEQ TABLET PO ONE (06:48)
[2020-08-29] MEDS ORDERED: IOVERSOL 320 100 ML VIAL IVP ONE ×2 (07:53→09:17)
[2020-08-29] MEDS ORDERED: IRON DEXTRAN 1,000 MG in SODIUM CHLORIDE 0.9% 250 ML IV SCH (08:00)
--- NOTE | 2020-08-29 08:04 | Ultrasound Report ---
PROCEDURE: Duplex Ext Veins Bilateral INDICATIONS: Leg swelling and pain TECHNIQUE: Real-time imaging, as well as color and pulse Doppler interrogation, were performed of the deep veins of both legs from the inguinal ligament to the popliteal fossa. COMPARISON: None FINDINGS: Calf veins are not well visualized in either the right or the left leg. On the right, ther e is acute versus subacute thrombus in the right gastrocnemius vein. There is no venous thrombosis pr oximal to this within the veins of the thigh or in the popliteal vein. No deep venous thrombosis iden tified in the left thigh. Veins of the left calf are not well visualized due to swelling. IMPRESSION: Acute versus subacute thrombosis in the right gastrocnemius vein. No gross evidence of deep venous thrombosis on the left. Reviewed by: Juan Carlos Velazquez MD on 08/29/2020 8:03 AM PDT Approved by: Juan Carlos Velazquez MD on 08/29/2020 8:03 AM PDT Station ID: [id number]
[2020-08-29] MEDS ORDERED: ROSUVASTATIN 10 MG PO SCH (09:00)
[2020-08-29] MEDS ORDERED: carvediloL 12.5 MG TABLET PO SCH (09:00)
--- NOTE | 2020-08-29 09:39 | CT Report ---
PROCEDURE: ANGIO CHEST W/WO INDICATIONS: dvt and short of breat CONTRAST: IV CONTRAST: Optiray 320 ml: 100 PO CONTRAST: *NO PO CONTRAST TECHNIQUE: After the administration of intravenous contrast, 2 mm thick sections acquired from the pulmonary api pavithra to the posterior costophrenic angles. 3-dimensional maximum intensity projection (MIP) coronal a nd sagittal reformats were then acquired through the thorax. For radiation dose reduction, the follow ing was used: automated exposure control, adjustment of mA and/or kV according to patient size. COMPARISON: CT abdomen and pelvis dated 10/02/2020 FINDINGS: Image quality: Excellent. Pulmonary arteries: Pulmonary arteries are normal in size, and demonstrate no intraluminal filling d efects to suggest central pulmonary embolism. Lungs and pleura: Lungs are clear. No pleural effusions or pneumothorax. Central and peripheral ai rways are patent. Mediastinum: Mild cardiomegaly. No pericardial effusion. Extensive coronary artery calcifications. Re mote CABG. No mediastinal or hilar adenopathy. Thoracic aorta is normal in caliber and enhancement. Esophagus is normal in caliber, without hiatal hernia. Bones and chest wall: No suspicious bony lesions. Ribs and thoracic spine appear intact throughout. The thyroid is normal. No axillary or supraclavicular adenopathy. Abdomen: Peripherally calcified splenic cyst measuring 4.4 cm, stable since 10/02/2020 IMPRESSION: 1. No evidence of acute pulmonary emboli. 2. No evidence acute pulmonary process. 3. Remote CABG, cardiomegaly. Reviewed by: Juan Pablo Bynum MD on 08/29/2020 9:37 AM PDT Approved by: Juan Pablo Bynum MD on 08/29/2020 9:37 AM PDT Station ID: [id number]
[2020-08-29] MEDS: SODIUM BICARBONATE 50 MEQ in SODIUM CHLORIDE 0.9% 1,000 ML IV SCH (10:10)
[2020-08-29] MEDS: hydrALAZINE 25 MG TABLET PO SCH ×2 (10:18→21:09)
[2020-08-29] MEDS: PANTOPRAZOLE 40 MG TABLET PO SCH (10:19)
[2020-08-29] MEDS: FERROUS SULFATE 325 MG TABLET PO SCH (10:23)
[2020-08-29] MEDS: amLODIPine 5 MG TABLET PO SCH (10:24)
[2020-08-29] MEDS: sulfaSALAzine 500 MG TABLET PO SCH ×2 (10:25→21:09)
--- NOTE | 2020-08-29 11:13 | PHARMACY PROGRESS NOTE ---
- Best Possible Medication History Admit Date and Time: 08/28/201925 Processed by: Nursing As the person ultimately responsible for medication therapy, providers are able to order a medication from an existing home medication list in [facility] via the "Reconcile Routine" prior to Confirmation of that medication by program support clerk. Such practice is discouraged except when the physician, in their clinical judgment, deems that a medical need exists for a medication without regard to previous use.
--- NOTE | 2020-08-29 12:21 | PROVIDER PROGRESS NOTE ---
Subjective - Prog Note Date Prog Note Date: 08/29/20 Prog Note Time: 12:14 - Subjective Pt reports feeling: Improved Subjective: he is hungry and not as sob but still gets lightheaded when he gets up. Current Medications - Current Medications Current Medications: Active Medications Amlodipine Besylate (Norvasc) 5 mg PO DAILY [facility] Last Admin: 08/29/20 10:24 Dose: 5 mg Documented by: Carvedilol (Coreg) 25 mg PO BID [facility] Last Admin: 08/29/20 10:22 Dose: 25 mg Documented by: Enoxaparin Sodium (Lovenox) 100 mg SUBQ BID [facility] Ferrous Sulfate (Feosol) 325 mg PO DAILYWM [facility] Last Admin: 08/29/20 10:23 Dose: 325 mg Documented by: Finasteride (Proscar) 5 mg PO QDAC [facility] Last Admin: 08/29/20 06:34 Dose: 5 mg Documented by: Hydralazine HCl (Apresoline) 25 mg PO BID [facility] Last Admin: 08/29/20 10:18 Dose: 25 mg Documented by: Sodium Bicarbonate 50 meq/ (Sodium Chloride) 1,050 mls @ 83.333 mls/hr IV .[id number] [facility] Last Admin: 08/29/20 10:10 Dose: 83.333 mls/hr Documented by: Multivitamins/Minerals (Theragran M) 1 tab PO DAILYWM [facility] Ondansetron HCl (Zofran Inj) 4 mg IVP Q6HR PRN PRN Reason: Nausea / Vomiting Pantoprazole Sodium (Protonix) 40 mg PO DAILY [facility] Last Admin: 08/29/20 10:19 Dose: 40 mg Documented by: Patient Own Med ( Rosuvastatin [ Crestor] 10 Mg) 1 each PO QPM [facility] Sodium Chloride (Normal Saline Flush 0.9%) 10 ml IVP PRN PRN PRN Reason: NEEDED PER PROVIDER ORDERS Sodium Chloride (Normal Saline Flush 0.9%) 10 ml IVP 0100,0900,1700 [facility] Last Admin: 08/29/20 08:08 Dose: 10 ml Documented by: Sulfasalazine (Azulfidine) 1,500 mg PO BID [facility] Last Admin: 08/29/20 10:25 Dose: 1,500 mg Documented by: lisinopriL [Zestril] 20 mg PO BID 01/18/14 Finasteride 5 mg PO QDAC 03/01/14 Furosemide [Lasix] 40 mg PO DAILY 03/01/14 Rosuvastatin [Crestor] 10 mg PO DAILY 03/04/14 sulfaSALAzine [Azulfidine] 1,500 mg PO BID 03/04/14 Carvedilol [Coreg] 25 mg PO BID 06/12/14 amLODIPine [Norvasc] 5 mg PO DAILY 09/10/16 hydrALAZINE [Apresoline] 25 mg PO BID 09/10/16 Aspirin [Adult Aspirin Regimen] 81 mg PO DAILY 09/11/19 Cetirizine [ZyrTEC] 10 mg PO DAILY 08/28/20 Nitroglycerin [Nitrostat] 0.4 mg SL Q5MIN PRN 08/28/20 Pantoprazole [Protonix] 40 mg PO DAILY 08/28/20 Objective - Vital Signs/Intake & Output Reviewed Vital Signs: Yes Vital Signs: Vital Signs x48h Temp Pulse Resp BP Pulse Ox 08/29/20 11:30 37.0 C 62 18 129/61 96 08/29/20 07:43 36.8 C 66 18 140/63 H 97 08/29/20 05:00 36.7 C 61 18 134/57 H 97 Intake & Output: Intake & Output 08/26/20 08/27/20 08/28/20 08/29/20 23:59 23:59 23:59 23:59 Intake Total 252 1150 Output Total 200 100 Balance 52 1050 - Objective General Appearance: positive: No acute distress, Alert, Other (talkative elderly white male) Eyes Bilateral: positive: PERRL, EOMI ENT: positive: Pharynx nml Neck: positive: No JVD Respiratory: positive: Chest non-tender. negative: Wheezes, Rales, Rhonchi Cardiovascular: positive: Regular rate & rhythm, Systolic murmur. negative: Gallop/S4, Friction rub Abdomen: positive: Non-tender, No organomegaly, Nml bowel sounds, No distention Skin: positive: No rash, Warm, Pallor Extremities: positive: Non-tender, No pedal edema Neurologic/Psychiatric: positive: Oriented x3, CN's nml (2-12), Motor nml - Lab Results Fish Bones: 08/29/20 05:10 08/29/20 05:10 Other Labs: Lab Results x24hrs 08/29/20 08/29/20 08/29/20 Range/Units 05:16 05:10 05:10 WBC (4.8-10.8) x10^3/uL RBC (4.70-6.10) 10^6/uL Hgb (14.0-18.0) g/dL Hct (42.0-52.0) % MCV (80.0-94.0) fL MCH (27.0-31.0) pg MCHC (32.0-36.0) g/dL RDW (12.0-15.0) % Plt Count (130-450) 10^3/uL MPV (7.4-11.4) fL Neut # (Auto) (1.5-6.6) 10^3/uL Lymph # (Auto) (1.5-3.5) 10^3/uL [place] # (Auto) (0.0-1.0) 10^3/uL Eos # (Auto) (0.0-0.7) 10^3/uL Baso # (Auto) (0.0-0.1) 10^3/uL Absolute Nucleated RBC x10^3/uL Nucleated RBC % /100WBC PT (9.9-12.6) secs INR (0.8-1.2) APTT (24.9-33.3) secs Sodium (135-145) mmol/L Potassium (3.5-5.0) mmol/L Chloride (101-111) mmol/L Carbon Dioxide (21-32) mmol/L Anion Gap (6-13) BUN (6-20) mg/dL Creatinine (0.6-1.2) mg/dL Estimated GFR (MDRD) (>89) Glucose (70-100) mg/dL Calcium (8.5-10.3) mg/dL Phosphorus (2.5-4.6) mg/dL Magnesium (1.7-2.8) mg/dL Iron (45-182) ug/dL TIBC (250-450) ug/dL % Saturation (20-50) % Transferrin (180-329) mg/dL Ferritin (23.9-336.2) ng/mL Total Bilirubin (0.2-1.0) mg/dL AST (10-42) IU/L ALT (10-60) IU/L Alkaline Phosphatase (42-121) IU/L Troponin I High Sens 26.4 H* (2.3-19.7) ng/L B-Natriuretic Peptide 1260 H (5-100) pg/mL Total Protein (6.7-8.2) g/dL Albumin (3.2-5.5) g/dL Globulin (2.1-4.2) g/dL Albumin/Globulin Ratio (1.0-2.2) Lipase (22-51) U/L Vitamin B12 164 L (180-914) pg/mL Folate 8.11 (5.90 - >24.8) ng/mL Blood Type Blood Type Recheck Antibody Screen Crossmatch IS Only 08/29/20 08/29/20 08/28/20 Range/Units 05:10 05:10 21:52 WBC 4.8 (4.8-10.8) x10^3/uL RBC 2.67 L (4.70-6.10) 10^6/uL Hgb 7.4 L (14.0-18.0) g/dL Hct 24.5 L (42.0-52.0) % MCV 91.8 (80.0-94.0) fL MCH 27.7 (27.0-31.0) pg MCHC 30.2 L (32.0-36.0) g/dL RDW 14.6 (12.0-15.0) % Plt Count 230 (130-450) 10^3/uL MPV 10.3 (7.4-11.4) fL Neut # (Auto) 3.2 (1.5-6.6) 10^3/uL Lymph # (Auto) 1.0 L (1.5-3.5) 10^3/uL [place] # (Auto) 0.6 (0.0-1.0) 10^3/uL Eos # (Auto) 0.0 (0.0-0.7) 10^3/uL Baso # (Auto) 0.0 (0.0-0.1) 10^3/uL Absolute Nucleated RBC 0.00 x10^3/uL Nucleated RBC % 0.0 /100WBC PT (9.9-12.6) secs INR (0.8-1.2) APTT (24.9-33.3) secs Sodium 140 (135-145) mmol/L Potassium 3.3 L (3.5-5.0) mmol/L Chloride 107 (101-111) mmol/L Carbon Dioxide 21 (21-32) mmol/L Anion Gap 12.0 (6-13) BUN 34 H (6-20) mg/dL Creatinine 1.5 H (0.6-1.2) mg/dL Estimated GFR (MDRD) 44 L (>89) Glucose 118 H (70-100) mg/dL Calcium 8.5 (8.5-10.3) mg/dL Phosphorus 3.3 (2.5-4.6) mg/dL Magnesium 2.0 (1.7-2.8) mg/dL Iron (45-182) ug/dL TIBC (250-450) ug/dL % Saturation (20-50) % Transferrin (180-329) mg/dL Ferritin (23.9-336.2) ng/mL Total Bilirubin (0.2-1.0) mg/dL AST (10-42) IU/L ALT (10-60) IU/L Alkaline Phosphatase (42-121) IU/L Troponin I High Sens 22.2 H* (2.3-19.7) ng/L B-Natriuretic Peptide (5-100) pg/mL Total Protein (6.7-8.2) g/dL Albumin (3.2-5.5) g/dL Globulin (2.1-4.2) g/dL Albumin/Globulin Ratio (1.0-2.2) Lipase (22-51) U/L Vitamin B12 (180-914) pg/mL Folate (5.90 - >24.8) ng/mL Blood Type Blood Type Recheck Antibody Screen Crossmatch IS Only 08/28/20 08/28/20 08/28/20 Range/Units 19:05 16:50 16:50 WBC (4.8-10.8) x10^3/uL RBC (4.70-6.10) 10^6/uL Hgb (14.0-18.0) g/dL Hct (42.0-52.0) % MCV (80.0-94.0) fL MCH (27.0-31.0) pg MCHC (32.0-36.0) g/dL RDW (12.0-15.0) % Plt Count (130-450) 10^3/uL MPV (7.4-11.4) fL Neut # (Auto) (1.5-6.6) 10^3/uL Lymph # (Auto) (1.5-3.5) 10^3/uL [place] # (Auto) (0.0-1.0) 10^3/uL Eos # (Auto) (0.0-0.7) 10^3/uL Baso # (Auto) (0.0-0.1) 10^3/uL Absolute Nucleated RBC x10^3/uL Nucleated RBC % /100WBC PT (9.9-12.6) secs INR (0.8-1.2) APTT (24.9-33.3) secs Sodium (135-145) mmol/L Potassium (3.5-5.0) mmol/L Chloride (101-111) mmol/L Carbon Dioxide (21-32) mmol/L Anion Gap (6-13) BUN (6-20) mg/dL Creatinine (0.6-1.2) mg/dL Estimated GFR (MDRD) (>89) Glucose (70-100) mg/dL Calcium (8.5-10.3) mg/dL Phosphorus (2.5-4.6) mg/dL Magnesium (1.7-2.8) mg/dL Iron 26 L (45-182) ug/dL TIBC 503 H (250-450) ug/dL % Saturation 5 L (20-50) % Transferrin 359 H (180-329) mg/dL Ferritin 5.3 L (23.9-336.2) ng/mL Total Bilirubin (0.2-1.0) mg/dL AST (10-42) IU/L ALT (10-60) IU/L Alkaline Phosphatase (42-121) IU/L Troponin I High Sens (2.3-19.7) ng/L B-Natriuretic Peptide (5-100) pg/mL Total Protein (6.7-8.2) g/dL Albumin (3.2-5.5) g/dL Globulin (2.1-4.2) g/dL Albumin/Globulin Ratio (1.0-2.2) Lipase (22-51) U/L Vitamin B12 (180-914) pg/mL Folate (5.90 - >24.8) ng/mL Blood Type O POSITIVE Blood Type Recheck Antibody Screen NEGATIVE Crossmatch IS Only See Detail 08/28/20 08/28/20 08/28/20 Range/Units 16:50 16:50 16:50 WBC (4.8-10.8) x10^3/uL RBC (4.70-6.10) 10^6/uL Hgb (14.0-18.0) g/dL Hct (42.0-52.0) % MCV (80.0-94.0) fL MCH (27.0-31.0) pg MCHC (32.0-36.0) g/dL RDW (12.0-15.0) % Plt Count (130-450) 10^3/uL MPV (7.4-11.4) fL Neut # (Auto) (1.5-6.6) 10^3/uL Lymph # (Auto) (1.5-3.5) 10^3/uL [place] # (Auto) (0.0-1.0) 10^3/uL Eos # (Auto) (0.0-0.7) 10^3/uL Baso # (Auto) (0.0-0.1) 10^3/uL Absolute Nucleated RBC x10^3/uL Nucleated RBC % /100WBC PT (9.9-12.6) secs INR (0.8-1.2) APTT (24.9-33.3) secs Sodium 139 (135-145) mmol/L Potassium 3.8 (3.5-5.0) mmol/L Chloride 108 (101-111) mmol/L Carbon Dioxide 22 (21-32) mmol/L Anion Gap 9.0 (6-13) BUN 33 H (6-20) mg/dL Creatinine 1.5 H (0.6-1.2) mg/dL Estimated GFR (MDRD) 44 L (>89) Glucose 137 H (70-100) mg/dL Calcium 8.9 (8.5-10.3) mg/dL Phosphorus (2.5-4.6) mg/dL Magnesium (1.7-2.8) mg/dL Iron (45-182) ug/dL TIBC (250-450) ug/dL % Saturation (20-50) % Transferrin (180-329) mg/dL Ferritin (23.9-336.2) ng/mL Total Bilirubin 1.0 (0.2-1.0) mg/dL AST 31 (10-42) IU/L ALT 24 (10-60) IU/L Alkaline Phosphatase 30 L (42-121) IU/L Troponin I High Sens 18.6 (2.3-19.7) ng/L B-Natriuretic Peptide 1102 H (5-100) pg/mL Total Protein 5.7 L (6.7-8.2) g/dL Albumin 3.9 (3.2-5.5) g/dL Globulin 1.8 L (2.1-4.2) g/dL Albumin/Globulin Ratio 2.2 (1.0-2.2) Lipase 65 H (22-51) U/L Vitamin B12 (180-914) pg/mL Folate (5.90 - >24.8) ng/mL Blood Type Blood Type Recheck Antibody Screen Crossmatch IS Only 08/28/20 08/28/20 08/28/20 Range/Units 16:50 16:50 16:30 WBC 4.3 L (4.8-10.8) x10^3/uL RBC 2.51 L (4.70-6.10) 10^6/uL Hgb 7.2 L (14.0-18.0) g/dL Hct 23.0 L (42.0-52.0) % MCV 91.6 (80.0-94.0) fL MCH 28.7 (27.0-31.0) pg MCHC 31.3 L (32.0-36.0) g/dL RDW 14.6 (12.0-15.0) % Plt Count 271 (130-450) 10^3/uL MPV 10.1 (7.4-11.4) fL Neut # (Auto) 2.8 (1.5-6.6) 10^3/uL Lymph # (Auto) 0.9 L (1.5-3.5) 10^3/uL [place] # (Auto) 0.6 (0.0-1.0) 10^3/uL Eos # (Auto) 0.0 (0.0-0.7) 10^3/uL Baso # (Auto) 0.0 (0.0-0.1) 10^3/uL Absolute Nucleated RBC 0.00 x10^3/uL Nucleated RBC % 0.0 /100WBC PT 14.5 H (9.9-12.6) secs INR 1.3 H (0.8-1.2) APTT 29.9 (24.9-33.3) secs Sodium (135-145) mmol/L Potassium (3.5-5.0) mmol/L Chloride (101-111) mmol/L Carbon Dioxide (21-32) mmol/L Anion Gap (6-13) BUN (6-20) mg/dL Creatinine (0.6-1.2) mg/dL Estimated GFR (MDRD) (>89) Glucose (70-100) mg/dL Calcium (8.5-10.3) mg/dL Phosphorus (2.5-4.6) mg/dL Magnesium (1.7-2.8) mg/dL Iron (45-182) ug/dL TIBC (250-450) ug/dL % Saturation (20-50) % Transferrin (180-329) mg/dL Ferritin (23.9-336.2) ng/mL Total Bilirubin (0.2-1.0) mg/dL AST (10-42) IU/L ALT (10-60) IU/L Alkaline Phosphatase (42-121) IU/L Troponin I High Sens (2.3-19.7) ng/L B-Natriuretic Peptide (5-100) pg/mL Total Protein (6.7-8.2) g/dL Albumin (3.2-5.5) g/dL Globulin (2.1-4.2) g/dL Albumin/Globulin Ratio (1.0-2.2) Lipase (22-51) U/L Vitamin B12 (180-914) pg/mL Folate (5.90 - >24.8) ng/mL Blood Type Blood Type Recheck O POSITIVE Antibody Screen Crossmatch IS Only - Diagnostic Imaging Diagnostic Imaging Results: positive: Final report reviewed Diagnostic Imaging Comments: EXAM: [id number] US/VENB ([id number]) PROCEDURE: Duplex Ext Veins Bilateral INDICATIONS: Leg swelling and pain TECHNIQUE: Real-time imaging, as well as color and pulse Doppler interrogation, were perf ormed of the deep veins of both legs from the inguinal ligament to the popliteal fossa. COMPARISON: None FINDINGS: Calf veins are not well visualized in either the right or the left leg. On the right, there is acute versus subacute thrombus in the right gastrocnemius vein. There is no venous thrombos is proximal to this within the veins of the thigh or in the popliteal vein. No deep venous thrombosis identified in the left thigh. Veins of the left calf are not well visualized due to swelling. IMPRESSION: Acute versus subacute thrombosis in the right gastrocnemius vein. No gross evidence of deep venous thrombosis on the left. Reviewed by: Juan Carlos Velazquez MD on 08/29/2020 8:03 AM PDT Approved by: Juan Carlos Velazquez MD on 08/29/2020 8:03 AM PDT EXAM: [id number] CT/CHTANG ([id number]) PROCEDURE: ANGIO CHEST W/WO INDICATIONS: dvt and short of breat CONTRAST: IV CONTRAST: Optiray 320 ml: 100 PO CONTRAST: *NO PO CONTRAST TECHNIQUE: After the administration of intravenous contrast, 2 mm thick sections acquired from the pulmonary apices to the posterior costophrenic angles. 3-dimensional maximum intensity projection (MIP) coronal and sagittal reformats were then acquired through the thorax. For radiation dose reduction, the following was used: automated exposure control, adjustment of mA and/or kV according to patient size. COMPARISON: CT abdomen and pelvis dated 10/02/2020 FINDINGS: Image quality: Excellent. Pulmonary arteries: Pulmonary arteries are normal in size, and demonstrate no intraluminal filling defects to suggest central pulmonary embolism. Lungs and pleura: Lungs are clear. No pleural effusions or pneumothorax. Central and peripheral airways are patent. Mediastinum: Mild cardiomegaly. No pericardial effusion. Extensive coronary artery calcifications. Remote CABG. No mediastinal or hilar adenopathy. Thoracic aorta is normal in caliber and enhancement. Esophagus is normal in caliber, without hiatal hernia. Bones and chest wall: No suspicious bony lesions. Ribs and thoracic spine appear intact throughout. The thyroid is normal. No axillary or supraclavicular adenopathy. Abdomen: Peripherally calcified splenic cyst measuring 4.4 cm, stable since 10/02/2020 IMPRESSION: 1. No evidence of acute pulmonary emboli. 2. No evidence acute pulmonary process. 3. Remote CABG, cardiomegaly. Reviewed by: Juan Pablo Bynum MD on 08/29/2020 9:37 AM PDT Approved by: Juan Pablo Bynum MD on 08/29/2020 9:37 AM PDT ABX Reporting Has patient been on IV antibiotics over the past 48 hours?: No Assessment/Plan - Problem List (1) Dvt femoral (deep venous thrombosis) Impression: gastrocnemius vein is considered a deep compartment vein. So he will need anticoagulation in the face of someone who has iron deficiency anemia that is profound enough to require IV iron and transfusion of 2 units of PRBC. We suspect low level chronic blood loss as cause of anemia. He denies any outword manifestation of vomitting of blood or bloody in stool but stools have been intermittently dark in the past. My concern is that I will be anticoagulating a gentleman who has a hidden neoplasm or gastric ulcer. I will then be causing bleeding to worsen. Plan: Lovenox short acting enough that I will start for DVT treatment but have the option of reversing and stopping it Continue to monitor for source of possible GI blood loss. We will have to discuss with general surgery if we want to do the work-up in the inpatient setting or the outpatient setting If he does start bleeding on Lovenox, I may need to transfer him for umbrella Qualifiers: Chronicity: chronic Laterality: left Qualified Code(s): I82.512 - Chronic embolism and thrombosis of left femoral vein (2) Moderate malnutrition Impression: With his diastolic heart failure and his underlying anemia he has developed a reduced functional capacity. He has lost 9 kg or 7% in the last 2 months. He is also developing signs of low albumin with mild chronic lower extremity edema as part of the failure and malnutrition. Plan: Nutrition consult (3) Anemia Impression: The etiology is not clear but he does report intermittent melena at home. His hemoglobin has dropped 3 g in the past couple of months. In review of the EMR he has been anemic for several years. But hovering at 10 to 11 g of hemoglobin. He is not aware of chronic anemia. He did have a colonoscopy in 2019 as well as EGD. 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 There is no gastritis or dysplasia on any of the biopsy specimens of his stomach or colon. His MCV is within normal limits. Given his dyspnea, we transfused 1 unit of packed red blood cell last night and since not responding, another this am. Plan: I thought about consulting general surgery. But he is already had an upper and lower endoscopy. He most likely will need another upper or lower endoscopy in the outpatient setting. If that repeat is negative he will need a video endoscopy. Qualifiers: Anemia type: unspecified type Qualified Code(s): D64.9 - Anemia, unspecified (2) Dyspnea Conclusion/Plan: I suspect this may be multifactorial and related to his anemia as well as his diastolic heart failure. We have ruled out PE with a CT angiogram from today. His chest x-ray did not suggest pulmonary vascular congestion. He is not hyp oxic. We have transfused 1 unit of packed red blood cell And also gave him Lasix afterwards. Hemoglobin this morning has not really bumped up enough and we will give him another unit of packed cells this morning. Qualifiers: Dyspnea type: dyspnea on exertion Qualified Code(s): R06.00 - Dyspnea, unspecified (3) Acute on chronic diastolic (congestive) heart failure Conclusion/Plan: His BNP is elevated at 1100 and he does have lower extremity edema. His chest x-ray does not reveal any pulmonary vascular congestion. His prior echocardiogram revealed a mildly dilated left ventricle with moderate to severe apical hypokinesis with an ejection fraction of 50%. He has mild pulmonary hypertension and mild to moderate mitral regurgitation. We gave him a dose of Lasix IV after the transfusion and will resume his home Lasix this morning. We will not obtain a repeat echocardiogram given he had one 6 weeks ago. He is already scheduled to see cardiology next month. Daily weights. Strict I's and O's. So far he is staying stable with 1 unit of blood already given, and the unit to be given today. We will continue to assess and escalate treatment if he gets more short of breath. (4) Acute kidney injury Conclusion/Plan: Creatinine is slightly increased at 1.5 compared to his baseline of 1.1. It is staying at 1.5 today. I suspect this may be due to cardiorenal syndrome.. Given he received a unit of packed red blood cell yesterday, we gave him a dose of Lasix IV last night. This morning he is the same. Plan: Continue to check daily Continue to hold lisinopril for now (5) Hypertension Conclusion/Plan: He was hypertensive with systolic in the 140s to 160s. We will resume his home antihypertensives except for lisinopril given the acute kidney injury.Since midnight he has been 1 29-1 40 systolic. This morning he is 129/61. Plan: No change in medication for now. Continue to hold lisinopril. (6) Coronary artery disease Conclusion/Plan: He has a history of coronary artery disease and is status post CABG and the . He is on aspirin, statin, beta-alirio. We Are holding the aspirin for the time being until we ensure there is no evidence of bleeding. Qualifiers: Coronary Disease-Associated Artery/Lesion type: bypass graft [place] vs. transplanted heart: [place] heart Associated angina: without angina Qualified Code(s): I25.810 - Atherosclerosis of coronary artery bypass graft(s) without angina pectoris (7) BPH (benign prostatic hyperplasia) Conclusion/Plan: We will continue his home finasteride. (8) Rheumatoid arthritis Conclusion/Plan: We will continue his home sulfasalazine.Some of his anemia may be due to anemia of chronic disease from both chronic kidney disease and his rheumatoid arthritis. Qualifiers: Qualified Code(s): D64.9 - Anemia, unspecified
[2020-08-29] MEDS: ENOXAPARIN 100 MG/ML SYRINGE SUBQ SCH ×2 (13:14→21:09)
[2020-08-29] MEDS: MULTIVITAMIN W/MINERALS TABLET PO SCH (16:22)
[2020-08-29 17:47] LABS: HGB - HEMOGLOBIN 8.9 g/dL (14.0-18.0)
[2020-08-29] MEDS: ROSUVASTATIN 10 MG PO SCH (21:09)
[2020-08-30] MEDS: SODIUM BICARBONATE 50 MEQ in SODIUM CHLORIDE 0.9% 1,000 ML IV SCH (00:08)
[2020-08-30] MEDS: SODIUM CHLORIDE FLUSH 0.9% 10 ML SYRINGE IVP SCH ×4 (00:09→23:41)
[2020-08-30 05:57] LABS: ABSOLUTE RETICS # AUTO 0.086 10^6/uL (0.020-0.110); RED BLOOD COUNT 3.03 10^6/uL (4.70-6.10)
[2020-08-30 05:59] LABS: BASOPHILS % (AUTO) 0.2 %; EOSINOPHILS % (AUTO) 0.6 %; HGB - HEMOGLOBIN 8.6 g/dL (14.0-18.0); LYMPHOCYTES # (AUTO) 1.1 10^3/uL (1.5-3.5); LYMPHOCYTES % (AUTO) 22.5 %; MEAN CORPUSCULAR HEMOGLOBIN 28.3 pg (27.0-31.0); MEAN CORPUSCULAR HGB CONC 31.5 g/dL (32.0-36.0); MEAN CORPUSCULAR VOLUME 89.8 fL (80.0-94.0); MEAN PLATELET VOLUME 10.4 fL (7.4-11.4); MONOCYTES # (AUTO) 0.5 10^3/uL (0.0-1.0); MONOCYTES % (AUTO) 10.4 %; NEUTROPHILS # (AUTO) 3.1 10^3/uL (1.5-6.6); NEUTROPHILS % (AUTO) 65.9 %; PLT - PLATELET COUNT 258 10^3/uL (130-450); RED BLOOD COUNT 3.04 10^6/uL (4.70-6.10); RED CELL DISTRIBUTION WIDTH 14.6 % (12.0-15.0); WHITE BLOOD COUNT 4.7 x10^3/uL (4.8-10.8)
[2020-08-30 06:11] LABS: CALCIUM 8.9 mg/dL (8.5-10.3); CREATININE 1.2 mg/dL (0.6-1.2); MAGNESIUM 2.2 mg/dL (1.7-2.8); PHOSPHORUS 2.5 mg/dL (2.5-4.6)
[2020-08-30] MEDS: FINASTERIDE 5 MG TABLET PO SCH (06:32)
[2020-08-30] MEDS: hydrALAZINE 25 MG TABLET PO SCH ×2 (08:07→21:01)
[2020-08-30] MEDS: FERROUS SULFATE 325 MG TABLET PO SCH (08:07)
[2020-08-30] MEDS: sulfaSALAzine 500 MG TABLET PO SCH ×2 (08:07→21:02)
[2020-08-30] MEDS: amLODIPine 5 MG TABLET PO SCH (08:07)
[2020-08-30] MEDS: PANTOPRAZOLE 40 MG TABLET PO SCH (08:07)
[2020-08-30] MEDS: MULTIVITAMIN W/MINERALS TABLET PO SCH (08:07)
[2020-08-30] MEDS: ENOXAPARIN 100 MG/ML SYRINGE SUBQ SCH ×2 (08:08→20:59)
[2020-08-30] MEDS: carvediloL 12.5 MG TABLET PO SCH ×2 (08:13→20:59)
--- NOTE | 2020-08-30 15:31 | PROVIDER PROGRESS NOTE ---
Subjective - Prog Note Date Prog Note Date: 08/30/20 Prog Note Time: 15:28 - Subjective Pt reports feeling: Improved Subjective: He continues to be incredibly pleasant white male. 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 Alert, oriented. Eating his food. Ambulating in the room with minimal assist. Current Medications - Current Medications Current Medications: Active Medications Amlodipine Besylate (Norvasc) 5 mg PO DAILY [facility] Last Admin: 08/30/20 08:07 Dose: 5 mg Documented by: Carvedilol (Coreg) 25 mg PO BID [facility] Last Admin: 08/30/20 08:13 Dose: 25 mg Documented by: Enoxaparin Sodium (Lovenox) 100 mg SUBQ BID [facility] Last Admin: 08/30/20 08:08 Dose: 100 mg Documented by: Ferrous Sulfate (Feosol) 325 mg PO DAILYWM [facility] Last Admin: 08/30/20 08:07 Dose: 325 mg Documented by: Finasteride (Proscar) 5 mg PO QDAC [facility] Last Admin: 08/30/20 06:32 Dose: 5 mg Documented by: Hydralazine HCl (Apresoline) 25 mg PO BID [facility] Last Admin: 08/30/20 08:07 Dose: 25 mg Documented by: Multivitamins/Minerals (Theragran M) 1 tab PO DAILYWM [facility] Last Admin: 08/30/20 08:07 Dose: 1 tab Documented by: Ondansetron HCl (Zofran Inj) 4 mg IVP Q6HR PRN PRN Reason: Nausea / Vomiting Pantoprazole Sodium (Protonix) 40 mg PO DAILY [facility] Last Admin: 08/30/20 08:07 Dose: 40 mg Documented by: Patient Own Med ( Rosuvastatin [ Crestor] 10 Mg) 1 each PO QPM [facility] Last Admin: 08/29/20 21:09 Dose: Not Given Documented by: Sodium Chloride (Normal Saline Flush 0.9%) 10 ml IVP PRN PRN PRN Reason: NEEDED PER PROVIDER ORDERS Sodium Chloride (Normal Saline Flush 0.9%) 10 ml IVP 0100,0900,1700 [facility] Last Admin: 08/30/20 08:09 Dose: 10 ml Documented by: Sulfasalazine (Azulfidine) 1,500 mg PO BID [facility] Last Admin: 08/30/20 08:07 Dose: 1,500 mg Documented by: lisinopriL [Zestril] 20 mg PO BID 01/18/14 Finasteride 5 mg PO QDAC 03/01/14 Furosemide [Lasix] 40 mg PO DAILY 03/01/14 Rosuvastatin [Crestor] 10 mg PO DAILY 03/04/14 sulfaSALAzine [Azulfidine] 1,500 mg PO BID 03/04/14 Carvedilol [Coreg] 25 mg PO BID 06/12/14 amLODIPine [Norvasc] 5 mg PO DAILY 09/10/16 hydrALAZINE [Apresoline] 25 mg PO BID 09/10/16 Aspirin [Adult Aspirin Regimen] 81 mg PO DAILY 09/11/19 Cetirizine [ZyrTEC] 10 mg PO DAILY 08/28/20 Nitroglycerin [Nitrostat] 0.4 mg SL Q5MIN PRN 08/28/20 Pantoprazole [Protonix] 40 mg PO DAILY 08/28/20 Objective - Vital Signs/Intake & Output Reviewed Vital Signs: Yes Vital Signs: Vital Signs x48h Temp Pulse Resp BP Pulse Ox 08/30/20 12:08 36.4 C L 72 20 127/54 L 96 08/30/20 08:33 36.6 C 78 22 133/79 H 95 Intake & Output: Intake & Output 08/27/20 08/28/20 08/29/20 08/30/20 23:59 23:59 23:59 23:59 Intake Total 252 3460 1650 Output Total 200 100 550 Balance 52 3360 1100 - Objective General Appearance: positive: No acute distress, Alert, Other (Sitting upright in chair. 5 foot 8 inches tall and 106 kg. He says that with Covid he has lost 30 pounds just because he does not eat as much from not going out. His weight is stayed stable during this admission. He was admitted at 106.5 kg.) Eyes Bilateral: positive: PERRL, EOMI ENT: positive: Pharynx nml Neck: positive: No JVD Respiratory: positive: No respiratory distress. negative: Wheezes, Rales, Rhonchi Cardiovascular: positive: Irregularly irregular. negative: JVD present, Gallop/S4, Friction rub Abdomen: positive: Non-tender, No organomegaly, Nml bowel sounds, No distention, Other (Large obese abdominal pannus.) Skin: positive: Warm, Dry Extremities: positive: Full ROM, Pedal edema (He has chemicals. Left leg slightly worse in edema than right leg. Also slightly pinker. But no heat, Homans negative.) Neurologic/Psychiatric: positive: Oriented x3, CN's nml (2-12), Motor nml - Lab Results Fish Bones: 08/30/20 05:25 08/30/20 05:25 Other Labs: Lab Results x24hrs 08/30/20 08/30/20 08/30/20 Range/Units 05:25 05:25 05:25 WBC 4.7 L (4.8-10.8) x10^3/uL RBC 3.03 L 3.04 L (4.70-6.10) 10^6/uL Hgb 8.6 L (14.0-18.0) g/dL Hct 27.3 L (42.0-52.0) % MCV 89.8 (80.0-94.0) fL MCH 28.3 (27.0-31.0) pg MCHC 31.5 L (32.0-36.0) g/dL RDW 14.6 (12.0-15.0) % Plt Count 258 (130-450) 10^3/uL MPV 10.4 (7.4-11.4) fL Reticulocyte % (Auto) 2.85 H (0.5-2.3) % Neut # (Auto) 3.1 (1.5-6.6) 10^3/uL Lymph # (Auto) 1.1 L (1.5-3.5) 10^3/uL [place] # (Auto) 0.5 (0.0-1.0) 10^3/uL Eos # (Auto) 0.0 (0.0-0.7) 10^3/uL Baso # (Auto) 0.0 (0.0-0.1) 10^3/uL Absolute Nucleated RBC 0.00 x10^3/uL Nucleated RBC % 0.0 /100WBC Absolute Retic 0.086 (0.020-0.110) 10^6/uL Sodium 139 (135-145) mmol/L Potassium 3.7 (3.5-5.0) mmol/L Chloride 107 (101-111) mmol/L Carbon Dioxide 21 (21-32) mmol/L Anion Gap 11.0 (6-13) BUN 25 H (6-20) mg/dL Creatinine 1.2 (0.6-1.2) mg/dL Estimated GFR (MDRD) 57 L (>89) Glucose 127 H (70-100) mg/dL Calcium 8.9 (8.5-10.3) mg/dL Phosphorus 2.5 (2.5-4.6) mg/dL Magnesium 2.2 (1.7-2.8) mg/dL Blood Type Antibody Screen Crossmatch IS Only 08/29/20 08/28/20 Range/Units 17:43 19:05 WBC (4.8-10.8) x10^3/uL RBC (4.70-6.10) 10^6/uL Hgb 8.9 L (14.0-18.0) g/dL Hct 27.3 L (42.0-52.0) % MCV (80.0-94.0) fL MCH (27.0-31.0) pg MCHC (32.0-36.0) g/dL RDW (12.0-15.0) % Plt Count (130-450) 10^3/uL MPV (7.4-11.4) fL Reticulocyte % (Auto) (0.5-2.3) % Neut # (Auto) (1.5-6.6) 10^3/uL Lymph # (Auto) (1.5-3.5) 10^3/uL [place] # (Auto) (0.0-1.0) 10^3/uL Eos # (Auto) (0.0-0.7) 10^3/uL Baso # (Auto) (0.0-0.1) 10^3/uL Absolute Nucleated RBC x10^3/uL Nucleated RBC % /100WBC Absolute Retic (0.020-0.110) 10^6/uL Sodium (135-145) mmol/L Potassium (3.5-5.0) mmol/L Chloride (101-111) mmol/L Carbon Dioxide (21-32) mmol/L Anion Gap (6-13) BUN (6-20) mg/dL Creatinine (0.6-1.2) mg/dL Estimated GFR (MDRD) (>89) Glucose (70-100) mg/dL Calcium (8.5-10.3) mg/dL Phosphorus (2.5-4.6) mg/dL Magnesium (1.7-2.8) mg/dL Blood Type O POSITIVE Antibody Screen NEGATIVE Crossmatch IS Only See Detail ABX Reporting Has patient been on IV antibiotics over the past 48 hours?: No Assessment/Plan - Problem List (1) Dvt femoral (deep venous thrombosis) Impression: gastrocnemius vein is considered a deep compartment vein. So he will need anticoagulation in the face of someone who has iron deficiency anemia that is profound enough to require IV iron and transfusion of 2 units of PRBC. We suspect low level chronic blood loss as cause of anemia. He denies any outword manifestation of vomitting of blood or bloody in stool but stools have been intermittently dark in the past. My concern is that I will be anticoagulating a gentleman who has a hidden neoplasm or gastric ulcer. I will then be causing bleeding to worsen. I started him on Lovenox because it is short acting enough that I could stop it if he begins to bleed. That was started yesterday. Today's there have been no symptoms. No bloody stool. No abdominal pain. Hemoglobin is staying stable. As such I will transition him to Eliquis. Will need to stay closely monitored at home and we have already spoken about that. Daughter is aware. She is a director of pediatric rehabilitation. At any sign of dark stool, bloody nose, etc., he needs to stop the Eliquis and notify his primary care provider. If he returns because of bleeding, the emergency room will have to transfer him to a higher level of care. He will need to be anticoagulated in the face of DVT plus an unknown source of bleeding. He will need a [place] filter and we cannot do that here. Qualifiers: Chronicity: chronic Laterality: left Qualified Code(s): I82.512 - Chronic embolism and thrombosis of left femoral vein (2) Anemia Impression: The etiology is not clear but he does report intermittent melena at home. His hemoglobin has dropped 3 g in the past couple of months. In review of the EMR he has been anemic for several years. But hovering at 10 to 11 g of hemoglobin. He is not aware of chronic anemia. He did have a colonoscopy in 2019 as well as EGD. 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 There is no gastritis or dysplasia on any of the biopsy specimens of his stomach or colon. His MCV is within normal limits. Given his dyspnea, we transfused 1 unit of packed red blood cell last night and since not responding, another 10/16 am. This morning he is staying stable at 8.6 g of hemoglobin. However his retake count is mildly elevated at 2.85. Absolute reticulocyte count is normal at 0.086. Hemolytic anemia associated with rheumatoid arthritis is possible. I thought about consulting general surgery. But he is already had an upper and lower endoscopy. He most likely will need another upper or lower endoscopy in the outpatient setting. If that repeat is negative he will need a video endoscopy. Plan: Add LDH. Continue to monitor Qualifiers: Anemia type: unspecified type Qualified Code(s): D64.9 - Anemia, unspecified (3) Dyspnea Conclusion/Plan: I suspect this may be multifactorial and related to his anemia as well as his diastolic heart failure. We have ruled out PE with a CT angiogram. . His chest x-ray did not suggest pulmonary vascular congestion. He is not hypoxic. We have transfused 1 unit of packed red blood cell And also gave him Lasix afterwards. Hemoglobin the next morning had not really bumped up enough and we gave him another unit of packed cells 08/29. Sob is better he states but I can't see why 2 units would have helped him so much. Qualifiers: Dyspnea type: dyspnea on exertion Qualified Code(s): R06.00 - Dyspnea, unspecified (4) Acute on chronic diastolic (congestive) heart failure Conclusion/Plan: His BNP on admission was elevated at 1100 and he did have lower extremity edema. His chest x-ray does not reveal any pulmonary vascular congestion. His prior echocardiogram revealed a mildly dilated left ventricle with moderate to severe apical hypokinesis with an ejection fraction of 50%. He has mild pulmonary hypertension and mild to moderate mitral regurgitation. We gave him a dose of Lasix IV after the transfusion and resumed his home Lasix 08/29. We will not obtain a repeat echocardiogram given he had one 6 weeks ago. He is already scheduled to see cardiology next month. Daily weights. Strict I's and O's. So far he is staying stable with 2 unis of blood. No decompensation. BNP is slightly higher than yesterday. He went from 1100->1200 but symptomatically and exam [place] he is stable. We will continue to assess and escalate treatment if he gets more short of breath. (5) Acute kidney injury Conclusion/Plan: Creatinine is slightly increased at 1.5 compared to his baseline of 1.1. He stated 1.5 yesterday. Today he is improved to 1.2. Almost at baseline. I suspect this may be due to cardiorenal syndrome.. Plan: Continue to check daily Continue to hold lisinopril for now (5) Hypertension Conclusion/Plan: Blood pressure has been consistently in the 130s to 150's. We had been holding onto his lisinopril because of acute kidney injury. Plan: Resume like lisinopril and watch kidney function (6) Coronary artery disease Conclusion/Plan: He has a history of coronary artery disease and is status post CABG and the . He is on aspirin, statin, beta-alirio. We Are holding the aspirin for the time being until we ensure there is no evidence of bleeding. Qualifiers: Coronary Disease-Associated Artery/Lesion type: bypass graft [place] vs. transplanted heart: [place] heart Associated angina: without angina Qualified Code(s): I25.810 - Atherosclerosis of coronary artery bypass graft(s) without angina pectoris (7) BPH (benign prostatic hyperplasia) Conclusion/Plan: We will continue his home finasteride. (8) Rheumatoid arthritis Conclusion/Plan: Some of his anemia may be due to anemia of chronic disease from both chronic kidney disease and his rheumatoid arthritis.Sulfasalazine resumed. We are checking LDH as well as his retake count to see if there is hemolysis Qualifiers: Qualified Code(s): D64.9 - Anemia, unspecified (3) Anemia Qualifiers: Qualified Code(s): D64.9 - Anemia, unspecified
[2020-08-30] MEDS ORDERED: APIXABAN 5 MG TABLET PO SCH (21:00)
[2020-08-30] MEDS ORDERED: FENOFIBRATE 48 MG TABLET PO SCH (21:00)
[2020-08-30] MEDS: FENOFIBRATE 48 MG TABLET PO SCH (21:00)
[2020-08-30] MEDS: lisinopriL 20 MG TABLET PO SCH (21:02)
[2020-08-30] MEDS: ROSUVASTATIN 10 MG PO SCH (21:02)
[2020-08-31 05:14] LABS: BASOPHILS % (AUTO) 0.2 %; EOSINOPHILS % (AUTO) 0.4 %; LYMPHOCYTES # (AUTO) 0.7 10^3/uL (1.5-3.5); LYMPHOCYTES % (AUTO) 15.6 %; MEAN CORPUSCULAR HEMOGLOBIN 28.8 pg (27.0-31.0); MEAN CORPUSCULAR HGB CONC 31.7 g/dL (32.0-36.0); MEAN CORPUSCULAR VOLUME 90.6 fL (80.0-94.0); MEAN PLATELET VOLUME 10.2 fL (7.4-11.4); MONOCYTES # (AUTO) 0.5 10^3/uL (0.0-1.0); NEUTROPHILS # (AUTO) 3.4 10^3/uL (1.5-6.6); NEUTROPHILS % (AUTO) 72.4 %; PLT - PLATELET COUNT 228 10^3/uL (130-450); RED BLOOD COUNT 2.78 10^6/uL (4.70-6.10); RED CELL DISTRIBUTION WIDTH 14.7 % (12.0-15.0); WHITE BLOOD COUNT 4.6 x10^3/uL (4.8-10.8)
[2020-08-31] MEDS: FINASTERIDE 5 MG TABLET PO SCH (06:43)
[2020-08-31 06:55] LABS: CALCIUM 8.7 mg/dL (8.5-10.3); CREATININE 1.1 mg/dL (0.6-1.2); MAGNESIUM 2.1 mg/dL (1.7-2.8); PHOSPHORUS 2.5 mg/dL (2.5-4.6)
[2020-08-31] MEDS ORDERED: POTASSIUM CHLORIDE 20 MEQ TABLET PO ONE (07:08)
[2020-08-31] MEDS: carvediloL 12.5 MG TABLET PO SCH (08:49)
[2020-08-31] MEDS: amLODIPine 5 MG TABLET PO SCH (08:49)
[2020-08-31] MEDS: sulfaSALAzine 500 MG TABLET PO SCH (08:49)
[2020-08-31] MEDS: FENOFIBRATE 48 MG TABLET PO SCH (08:50)
[2020-08-31] MEDS: lisinopriL 20 MG TABLET PO SCH (08:50)
[2020-08-31] MEDS: MULTIVITAMIN W/MINERALS TABLET PO SCH (08:50)
[2020-08-31] MEDS: PANTOPRAZOLE 40 MG TABLET PO SCH (08:50)
[2020-08-31] MEDS: hydrALAZINE 25 MG TABLET PO SCH (08:51)
[2020-08-31] MEDS: FERROUS SULFATE 325 MG TABLET PO SCH (08:51)
[2020-08-31] MEDS: ENOXAPARIN 100 MG/ML SYRINGE SUBQ SCH (08:51)
[2020-08-31] MEDS: SODIUM CHLORIDE FLUSH 0.9% 10 ML SYRINGE IVP SCH (08:56)
--- NOTE | 2020-08-31 11:00 | Discharge Plan ---
Discharge Plan Problem Reviewed?: Yes Disposition: Home, Self Care Condition: Good Prescriptions: Apixaban [Eliquis] 5 mg PO DAILY #1 tab.ds.pk Ferrous Gluconate 240 mg PO BID #60 tablet Diet: Cardiac Activity Restrictions: Activity as Tolerated Shower Restrictions: No Driving Restrictions: No Health Concerns: You presented to the hospital with shortness of breath. We already know that you have mild congestive heart failure from previous bypass surgery. We also found you to have severe anemia. You have been anemic for a few years. Our electronic medical record goes back to 2012. You had mild anemia to 12 g of hemoglobin then. Normal is 14. In 2013 you drifted to 9 and they have been bouncing back and forth between 9 g of hemoglobin and 10 g of hemoglobin since June 2020. You state that Dr. Larios was looking for causes of anemia and you had an upper and lower endoscopy in 2018 that was normal other than for a small colon polyp. With this admission you had drifted down to 7.2 g of hemoglobin and had severe iron deficiency. Your iron level was 26. Your ferritin level was 5.3. We think that your shortness of breath is caused by iron deficiency anemia in a patient who has heart disease, mild congestive heart failure. While we were working up these problems, we unfortunately found you to have a gastrocnemius deep vein thrombosis of your right leg. Those are considered deep enough and large enough that they need to be anticoagulated. Our conundrum is a patient who has iron deficiency anemia that may be bleeding from somewhere versus the same patient having a blood clot in their leg needing to be on blood thinners. We gingerly started blood thinning agents on you because were afraid of your bleeding. So far you are tolerating the blood thinners. Your hemoglobin had been 8.9 and then went to 8.6 and was now 8.0 today. While I would like to keep you another day, this is mainly for an abundance of caution, you are willing to go home and have agreed to get your blood drawn to make sure you are not getting more severely anemic. Plan of Treatment: 1. You will start Eliquis as a blood thinner. At any sign of bleeding such as bright red blood per rectum, blood in your urine, you need to stop the Eliquis. Please reported immediately to your primary care provider. 2. If you do start bleeding, you can come to the emergency room if you are feeling lightheaded, weak, or short of breath. Let them know that you have a blood clot in your leg, and that you need to be on blood thinners. Because you cannot be on blood thinners, they may need to have to transport you to another hospital so that they can put a filter in the inferior vena cava (the large vein returning blood to your heart) in order for them to stop blood thinners, but also prevent a blood clot from getting to your lungs. 3. You will need to continue getting worked up for the iron deficiency anemia. Medicine is a creative art and different doctors will approach it differently. Most likely you will get a repeat upper and lower endoscopy. If that is negative we will then need a video endoscopy capsule. 4. You will be started on iron replacement therapy. It will be 1 pill twice a day. You already received an IV iron infusion while in the hospital. 5. None of your other medicines have been changed. Eliquis is your only new medicine as well as the new iron. 6. Dr. Larios is your primary care provider. Since he is leaving his office to go down the street to a new office, you would like to see a new primary care provider in your current office. You have asked me to recommend 1. Dr. Massey would be a wonderful choice for you. If not Dr. Gold, Dr. Alysa Donald. Care Goals: 1. To begin Eliquis for the next 3 to 4 months. 2. To find out why you are have iron deficiency anemia Assessment: Patient has understood care goals and promises to follow through No Smoking: If you smoke, Please STOP! Call for help. Follow-up with: BRITTON LARIOS MD [Physician No Access] -
[2020-08-31 14:42] VITALS: BP 148/71
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
[2020-08-31] MEDS ORDERED: APIXABAN 5 MG TABLET PO SCH (21:00)
== END 2020-08-31 14:40 | disposition home or self-care (01) | DRG 299 ==
LOC: ED 16:26 → MS2 19:26 → OBSVTOIN 08-30 07:25
PROVIDERS: ADMIT Internal Medicine; ATTEND Specialist
DX: N28.9 Disorder of kidney and ureter, unspecified (principal); I11.0 Hypertensive heart disease with heart failure; I50.9 Heart failure, unspecified; D64.9 Anemia, unspecified; I25.10 Atherosclerotic heart disease of native coronary artery without angina pectoris; I25.2 Old myocardial infarction; I45.10 Unspecified right bundle-branch block; I82.461 Acute embolism and thrombosis of right calf muscular vein; I50.33 Acute on chronic diastolic (congestive) heart failure; I25.810 Atherosclerosis of coronary artery bypass graft(s) without angina pectoris; N17.9 Acute kidney failure, unspecified; K92.1 Melena; E44.0 Moderate protein-calorie malnutrition; I13.0 Hypertensive heart and chronic kidney disease with heart failure and stage 1 through stage 4 chronic kidney disease, or unspecified chronic kidney disease; D50.9 Iron deficiency anemia, unspecified; N40.0 Benign prostatic hyperplasia without lower urinary tract symptoms; M06.9 Rheumatoid arthritis, unspecified; Z95.1 Presence of aortocoronary bypass graft; Z95.5 Presence of coronary angioplasty implant and graft; Z86.010 Personal history of colon polyps; N18.9 Chronic kidney disease, unspecified; E66.9 Obesity, unspecified; Z68.35 Body mass index [BMI] 35.0-35.9, adult; R60.9 Edema, unspecified; F17.290 Nicotine dependence, other tobacco product, uncomplicated; Z66 Do not resuscitate
CPT/HCPCS: 36415; 36430; 71045; 71275; 80048; 80053; 82272; 82607; 82728; 82746; 83540; 83615; 83690; 83735; 83880; 84100; 84466; 84484; 85014; 85018; 85025; 85045; 85610; 85730; 86850; 86900; 86901; 86920; 93005; 93970; 96365; 96366; 96367; 96372; 96375; 99284; 99285; A9270; G0378; J1650; J1750; P9016; Q9967

== ENCOUNTER 2020-09-01 13:18 | Outpatient (CLI) | payer MEDICARE, OTHER ==
[2020-09-01 13:48] LABS: BASOPHILS % (AUTO) 0.2 %; EOSINOPHILS % (AUTO) 0.5 %; HGB - HEMOGLOBIN 8.1 g/dL (14.0-18.0); LYMPHOCYTES # (AUTO) 0.6 10^3/uL (1.5-3.5); MEAN CORPUSCULAR HEMOGLOBIN 28.6 pg (27.0-31.0); MEAN CORPUSCULAR HGB CONC 30.8 g/dL (32.0-36.0); MEAN CORPUSCULAR VOLUME 92.9 fL (80.0-94.0); MEAN PLATELET VOLUME 10.3 fL (7.4-11.4); MONOCYTES # (AUTO) 0.6 10^3/uL (0.0-1.0); MONOCYTES % (AUTO) 13.8 %; NEUTROPHILS # (AUTO) 2.8 10^3/uL (1.5-6.6); NEUTROPHILS % (AUTO) 69.8 %; PLT - PLATELET COUNT 220 10^3/uL (130-450); RED BLOOD COUNT 2.83 10^6/uL (4.70-6.10); RED CELL DISTRIBUTION WIDTH 15.3 % (12.0-15.0); WHITE BLOOD COUNT 4.1 x10^3/uL (4.8-10.8)
== END 2020-09-01 13:19 | disposition home or self-care (01) ==
LOC: LAB 13:18
PROVIDERS: ATTEND Specialist
DX: D64.9 Anemia, unspecified (principal)
CPT/HCPCS: 36415; 85025

== ENCOUNTER 2020-09-01 18:12 | Emergency (ER) | payer MEDICARE, OTHER ==
[2020-09-01 18:23] VITALS: BP 147/68
[2020-09-01 19:15] LABS: BASOPHILS % (AUTO) 0.2 %; EOSINOPHILS % (AUTO) 0.7 %; HGB - HEMOGLOBIN 8.3 g/dL (14.0-18.0); LYMPHOCYTES # (AUTO) 0.8 10^3/uL (1.5-3.5); LYMPHOCYTES % (AUTO) 17.6 %; MEAN CORPUSCULAR HGB CONC 31.4 g/dL (32.0-36.0); MEAN CORPUSCULAR VOLUME 92.3 fL (80.0-94.0); MEAN PLATELET VOLUME 10.3 fL (7.4-11.4); MONOCYTES # (AUTO) 0.6 10^3/uL (0.0-1.0); MONOCYTES % (AUTO) 12.7 %; NEUTROPHILS # (AUTO) 3.1 10^3/uL (1.5-6.6); NEUTROPHILS % (AUTO) 68.1 %; PLT - PLATELET COUNT 234 10^3/uL (130-450); RED BLOOD COUNT 2.86 10^6/uL (4.70-6.10); RED CELL DISTRIBUTION WIDTH 15.6 % (12.0-15.0); WHITE BLOOD COUNT 4.5 x10^3/uL (4.8-10.8)
[2020-09-01 19:29] LABS: ALBUMIN 3.6 g/dL (3.2-5.5); BILIRUBIN,TOTAL 0.8 mg/dL (0.2-1.0); CALCIUM 9.1 mg/dL (8.5-10.3); CREATININE 1.5 mg/dL (0.6-1.2); TOTAL PROTEIN 5.4 g/dL (6.7-8.2)
--- NOTE | 2020-09-01 19:36 | XRAY Report ---
PROCEDURE: Chest 1 View X-Ray INDICATIONS: Chest Pain TECHNIQUE: One view of the chest was acquired. COMPARISON: 08/28/2020 FINDINGS: Surgical changes and devices: Median sternotomy changes.. Lungs and pleura: No pleural effusions or pneumothorax. Lungs demonstrate subtle Dennis B lines.. Mediastinum: Mediastinal contours appear normal. Heart size is mildly enlarged. Bones and chest wall: No suspicious bony lesions. Overlying soft tissues appear unremarkable. IMPRESSION: 1. Cardiomegaly with postsurgical changes. 2. Subtle Dennis B lines suggesting chronic central venous congestion. Correlate with BNP. Reviewed by: Hermila Mendez MD on 09/01/2020 7:34 PM PDT Approved by: Hermila Mendez MD on 09/01/2020 7:34 PM PDT Station ID: [id number]
[2020-09-01] MEDS ORDERED: FUROSEMIDE 40 MG/4 ML VIAL IVP STA (19:48)
[2020-09-01] MEDS ORDERED: APIXABAN 5 MG TABLET PO STA ×2 (19:50→19:56)
--- NOTE | 2020-09-01 19:50 | ED Physician Documentation ---
PD HPI DYSPNEA - Stated complaint Stated Complaint: SOA - Chief complaint Chief Complaint: Resp - History obtained from History obtained from: Patient, Family - History of Present Illness Timing - onset: Today Timing - onset during: Light activity Timing - duration: Days (1) Timing - details: Gradual onset Pain level max: 0 Pain level now: 0 - Treatment prior to arrival Treatment prior to arrival: 85-year-old male presents to the emergency department with dyspnea today. He had been recently admitted for CHF and anemia. He was diuresed and given packed red blood cells. Return today for a repeat CBC. This afternoon he began to c ough up what sounds like blood-tinged sputum, and had difficulty breathing. Unable to walk more than a few steps. His daughter, who is a hand laminator, brought him back to the emergency department for evaluation. Review of Systems Ten Systems: 10 systems reviewed and negative Constitutional: denies: Fever, Chills Eyes: denies: Decreased vision Ears: denies: Ear pain Nose: denies: Rhinorrhea / runny nose, Congestion Throat: denies: Sore throat Cardiac: denies: Chest pain / pressure Respiratory: denies: Wheezing GI: denies: Abdominal Pain, Nausea, Vomiting, Diarrhea Skin: denies: Rash Musculoskeletal: denies: Neck pain, Back pain Neurologic: denies: Headache PD PAST MEDICAL HISTORY - Past Medical History Past Medical History: Yes Cardiovascular: Hypertension, High cholesterol, Coronary artery disease, [place], Atrial flutter Respiratory: None Endocrine/Autoimmune: None GI: GERD, Hiatal hernia, Colon polyps : Benign prostate hypertrophy HEENT: Chronic vision loss Psych: None Musculoskeletal: Osteoarthritis, Rheumatoid arthritis, Chronic back pain Derm: Other - Past Surgical History Past Surgical History: Yes General: Colonoscopy Ortho: Knee replacement Cardiovascular: CABG, Coronary stent HEENT: Cataracts, Tonsil/Adenoidectomy - Present Medications Home Medications: Ambulatory Orders Medication Instructions Recorded Confirmed lisinopriL [Zestril] 20 mg PO BID 01/18/14 08/28/20 Finasteride 5 mg PO QDAC 03/01/14 08/28/20 Furosemide [Lasix] 40 mg PO DAILY 03/01/14 08/28/20 Rosuvastatin [Crestor] 10 mg PO DAILY 03/04/14 08/28/20 sulfaSALAzine [Azulfidine] 1,500 mg PO BID 03/04/14 08/28/20 Carvedilol [Coreg] 25 mg PO BID 06/12/14 08/28/20 amLODIPine [Norvasc] 5 mg PO DAILY 09/10/16 08/28/20 hydrALAZINE [Apresoline] 25 mg PO BID 09/10/16 08/28/20 Aspirin [Adult Aspirin Regimen] 81 mg PO DAILY 09/11/19 08/28/20 Cetirizine [ZyrTEC] 10 mg PO DAILY 08/28/20 08/28/20 Nitroglycerin [Nitrostat] 0.4 mg SL Q5MIN PRN 08/28/20 08/28/20 Pantoprazole [Protonix] 40 mg PO DAILY 08/28/20 08/28/20 Ferrous Gluconate 240 mg PO BID #60 tablet 08/31/20 Apixaban [Eliquis] 10 mg PO BID #72 tablet 09/01/20 Furosemide [Lasix] 80 mg PO DAILY #7 tablet 09/01/20 - Allergies Allergies/Adverse Reactions: Allergies Allergy/AdvReac Type Severity Reaction Status Date / Time atorvastatin calcium * Allergy Severe Anaphylaxis Verified 09/01/20 18:15 [From Lipitor] amoxicillin [Amoxicillin] Allergy Intermediate Rash Verified 09/01/20 18:15 - Social History Does the pt smoke?: No Smoking Status: Never smoker Does the pt drink ETOH?: No Does the pt have substance abuse?: No - Immunizations Immunizations are current?: Yes PD ED PE NORMAL - Vitals Vital signs reviewed: Yes - General General: Alert and oriented X 3, No acute distress - HEENT HEENT: Moist mucous membranes, Pharynx benign - Neck Neck: Supple, no meningeal sign - Cardiac Cardiac: RRR, Strong equal pulses - Respiratory Respiratory: No respiratory distress, Other (crackles B) - Abdomen Abdomen: Soft, Non tender, Non distended - Derm Derm: Warm and dry - Extremities Extremities: Other (2+ pitting edema bilateral lower extremity) - Neuro Neuro: Alert and oriented X 3 Results - Vitals Vitals: Vital Signs - 24 hr 09/01/20 09/01/20 09/01/20 18:15 20:00 20:23 Temperature 36.6 C Heart Rate 70 70 Respiratory 18 19 27 H Rate Blood Pressure 147/68 H O2 Saturation 96 96 97 Oxygen O2 Source [] Room air O2 Source [] Room air O2 Source Room air - EKG (time done) 1850 Rate: Rate (enter#) (76) Rhythm: NSR Intervals: Wide QRS (IVCD) - Labs Labs: Laboratory Tests 09/01/20 09/01/20 09/01/20 18:55 18:55 18:55 WBC 4.5 L RBC 2.86 L Hgb 8.3 L Hct 26.4 L MCV 92.3 MCH 29.0 MCHC 31.4 L RDW 15.6 H Plt Count 234 MPV 10.3 Neut # (Auto) 3.1 Lymph # (Auto) 0.8 L [place] # (Auto) 0.6 Eos # (Auto) 0.0 Baso # (Auto) 0.0 Absolute Nucleated RBC 0.05 Nucleated RBC % 1.1 Sodium 140 Potassium 3.8 Chloride 108 Carbon Dioxide 22 Anion Gap 10.0 BUN 25 H Creatinine 1.5 H Estimated GFR (MDRD) 44 L Glucose 186 H Calcium 9.1 Total Bilirubin 0.8 AST 46 H ALT 28 Alkaline Phosphatase 30 L Troponin I High Sens 20.8 H* B-Natriuretic Peptide Total Protein 5.4 L Albumin 3.6 Globulin 1.8 L Albumin/Globulin Ratio 2.0 Lipase 56 H 09/01/20 18:55 WBC RBC Hgb Hct MCV MCH MCHC RDW Plt Count MPV Neut # (Auto) Lymph # (Auto) [place] # (Auto) Eos # (Auto) Baso # (Auto) Absolute Nucleated RBC Nucleated RBC % Sodium Potassium Chloride Carbon Dioxide Anion Gap BUN Creatinine Estimated GFR (MDRD) Glucose Calcium Total Bilirubin AST ALT Alkaline Phosphatase Troponin I High Sens B-Natriuretic Peptide 1221 H Total Protein Albumin Globulin Albumin/Globulin Ratio Lipase - Rads (name of study) cxr Radiology: Prelim report reviewed, EMP read contemporaneously, See rad report (1. Cardiomegaly with postsurgical changes. 2. Subtle Dennis B lines suggesting chronic central venous congestion. Correlate with BNP. 1. Cardiomegaly with postsurgical changes. 2. Subtle Dennis B lines suggesting chronic central venous congestion. Correlate with BNP. ) PD MEDICAL DECISION MAKING - ED course Complexity details: reviewed results, re-evaluated patient, considered differential, d/w patient, d/w family, d/w managed services sales consultant ED course: 85-year-old male presents to the emergency department with continued dyspnea. His hemoglobin is stable. He is not having any active bleeding. He did receive an iron infusion. He also received pRBC on recent hospital admission. He feels much better after Lasix. We will increase his Lasix for home. He ambulated from bed one down the cruz to the bathroom and back without difficulty. Daughter is comfortable taking him home and patient would like to go home. He does not want to be readmitted to the hospital. Patient and family counseled regarding signs and symptoms for which I believe and urgent re- evaluation would be necessary. Patient with good understanding of and agreement to plan and is comfortable going home at this time This document was made in part using voice recognition software. While efforts are made to proofread this document, sound alike and grammatical errors may occur. Departure - Departure Disposition: 01 Home, Self Care Clinical Impression: Acute on chronic diastolic (congestive) heart failure Dyspnea Qualifiers: Dyspnea type: shortness of breath Qualified Code(s): R06.02 - Shortness of breath Pulmonary edema Qualifiers: Chronicity: acute Qualified Code(s): J81.0 - Acute pulmonary edema Condition: Good Instructions: ED CHF General Follow-Up: Sudeep Larios MD [Primary Care Provider] - Within 3 Days Prescriptions: Furosemide [Lasix] 80 mg PO DAILY #7 tablet Comments: We will increase his Lasix to 80 mg daily for the next week. Return if he worsens. His hemoglobin is stable today. He was given his Eliquis tonight as well. Discharge Date/Time: 09/01/20 21:01
== END 2020-09-01 21:01 | disposition home or self-care (01) ==
LOC: ED 18:12
DX: I11.0 Hypertensive heart disease with heart failure (principal); I50.33 Acute on chronic diastolic (congestive) heart failure; D64.9 Anemia, unspecified
CPT/HCPCS: 36415; 71045; 80053; 83690; 83880; 84484; 85025; 93005; 96374; 99284

== ENCOUNTER 2020-09-03 11:42 | Outpatient (CLI) | payer MEDICARE, OTHER ==
[2020-09-03 12:17] LABS: BASOPHILS % (AUTO) 0.3 %; EOSINOPHILS % (AUTO) 0.5 %; HGB - HEMOGLOBIN 8.3 g/dL (14.0-18.0); LYMPHOCYTES # (AUTO) 0.9 10^3/uL (1.5-3.5); LYMPHOCYTES % (AUTO) 23.2 %; MEAN CORPUSCULAR HEMOGLOBIN 28.4 pg (27.0-31.0); MEAN CORPUSCULAR HGB CONC 30.3 g/dL (32.0-36.0); MEAN CORPUSCULAR VOLUME 93.8 fL (80.0-94.0); MEAN PLATELET VOLUME 10.5 fL (7.4-11.4); MONOCYTES # (AUTO) 0.5 10^3/uL (0.0-1.0); MONOCYTES % (AUTO) 14.1 %; NEUTROPHILS # (AUTO) 2.3 10^3/uL (1.5-6.6); NEUTROPHILS % (AUTO) 61.4 %; PLT - PLATELET COUNT 225 10^3/uL (130-450); RED BLOOD COUNT 2.92 10^6/uL (4.70-6.10); RED CELL DISTRIBUTION WIDTH 17.3 % (12.0-15.0); WHITE BLOOD COUNT 3.8 x10^3/uL (4.8-10.8)
== END 2020-09-03 11:43 | disposition home or self-care (01) ==
LOC: LAB 11:42
PROVIDERS: ATTEND Specialist
DX: D64.9 Anemia, unspecified (principal)
CPT/HCPCS: 36415; 85025

== ENCOUNTER 2020-09-05 13:47 | Outpatient (CLI) | payer MEDICARE, OTHER ==
[2020-09-05 14:09] LABS: BASOPHILS % (AUTO) 0.2 %; EOSINOPHILS % (AUTO) 0.4 %; HGB - HEMOGLOBIN 9.2 g/dL (14.0-18.0); LYMPHOCYTES % (AUTO) 21.6 %; MEAN CORPUSCULAR HEMOGLOBIN 29.1 pg (27.0-31.0); MEAN CORPUSCULAR HGB CONC 30.5 g/dL (32.0-36.0); MEAN CORPUSCULAR VOLUME 95.6 fL (80.0-94.0); MEAN PLATELET VOLUME 10.5 fL (7.4-11.4); MONOCYTES # (AUTO) 0.6 10^3/uL (0.0-1.0); MONOCYTES % (AUTO) 13.5 %; NEUTROPHILS % (AUTO) 63.5 %; PLT - PLATELET COUNT 265 10^3/uL (130-450); RED BLOOD COUNT 3.16 10^6/uL (4.70-6.10); RED CELL DISTRIBUTION WIDTH 19.3 % (12.0-15.0); WHITE BLOOD COUNT 4.7 x10^3/uL (4.8-10.8)
== END 2020-09-05 13:48 | disposition home or self-care (01) ==
LOC: LAB 13:47
PROVIDERS: ATTEND Specialist
DX: D64.9 Anemia, unspecified (principal)
CPT/HCPCS: 36415; 85025

== ENCOUNTER 2020-09-09 13:41 | Outpatient (CLI) | payer MEDICARE, OTHER ==
[2020-09-09 18:31] LABS: BASOPHILS % (AUTO) 0.2 %; EOSINOPHILS % (AUTO) 0.2 %; HGB - HEMOGLOBIN 8.4 g/dL (14.0-18.0); LYMPHOCYTES % (AUTO) 22.9 %; MEAN CORPUSCULAR HEMOGLOBIN 30.7 pg (27.0-31.0); MEAN CORPUSCULAR HGB CONC 30.8 g/dL (32.0-36.0); MEAN CORPUSCULAR VOLUME 99.6 fL (80.0-94.0); MEAN PLATELET VOLUME 11.3 fL (7.4-11.4); MONOCYTES # (AUTO) 0.5 10^3/uL (0.0-1.0); MONOCYTES % (AUTO) 12.5 %; NEUTROPHILS # (AUTO) 2.8 10^3/uL (1.5-6.6); PLT - PLATELET COUNT 247 10^3/uL (130-450); RED BLOOD COUNT 2.74 10^6/uL (4.70-6.10); RED CELL DISTRIBUTION WIDTH 22.2 % (12.0-15.0); WHITE BLOOD COUNT 4.3 x10^3/uL (4.8-10.8)
[2020-09-09 18:48] LABS: CALCIUM 8.8 mg/dL (8.5-10.3); CREATININE 1.7 mg/dL (0.6-1.2)
[2020-09-09 19:03] LABS: PLATELET ESTIMATE, MANUAL NORMAL (130-450,000) (NORMAL); PLATELET MORPHOLOGY NORMAL APPEARANCE (NORMAL)
== END 2020-09-09 13:42 | disposition home or self-care (01) ==
LOC: LAB.WCP 13:41
PROVIDERS: ATTEND Family Medicine
DX: I10 Essential (primary) hypertension (principal); I50.33 Acute on chronic diastolic (congestive) heart failure; I25.10 Atherosclerotic heart disease of native coronary artery without angina pectoris; J81.0 Acute pulmonary edema
CPT/HCPCS: 36415; 80048; 83880; 85025

== ENCOUNTER 2020-09-15 12:08 | Outpatient (CLI) | payer MEDICARE, OTHER ==
[2020-09-15 18:00] LABS: BASOPHILS % (AUTO) 0.3 %; EOSINOPHILS % (AUTO) 0.5 %; HGB - HEMOGLOBIN 7.7 g/dL (14.0-18.0); LYMPHOCYTES # (AUTO) 0.9 10^3/uL (1.5-3.5); LYMPHOCYTES % (AUTO) 25.3 %; MEAN CORPUSCULAR HGB CONC 30.8 g/dL (32.0-36.0); MEAN CORPUSCULAR VOLUME 103.7 fL (80.0-94.0); MEAN PLATELET VOLUME 11.1 fL (7.4-11.4); MONOCYTES # (AUTO) 0.5 10^3/uL (0.0-1.0); MONOCYTES % (AUTO) 14.5 %; NEUTROPHILS # (AUTO) 2.2 10^3/uL (1.5-6.6); NEUTROPHILS % (AUTO) 58.9 %; PLT - PLATELET COUNT 251 10^3/uL (130-450); RED BLOOD COUNT 2.41 10^6/uL (4.70-6.10); RED CELL DISTRIBUTION WIDTH 23.1 % (12.0-15.0); WHITE BLOOD COUNT 3.7 x10^3/uL (4.8-10.8)
[2020-09-15 18:18] LABS: PLATELET ESTIMATE, MANUAL NORMAL (130-450,000) (NORMAL); PLATELET MORPHOLOGY NORMAL APPEARANCE (NORMAL)
[2020-09-15 18:21] LABS: CREATININE 1.6 mg/dL (0.6-1.2)
== END 2020-09-15 23:59 | disposition home or self-care (01) ==
LOC: LAB.WCP 12:08
PROVIDERS: ATTEND Family Medicine
DX: D50.9 Iron deficiency anemia, unspecified (principal); I50.33 Acute on chronic diastolic (congestive) heart failure; I25.10 Atherosclerotic heart disease of native coronary artery without angina pectoris; N17.9 Acute kidney failure, unspecified; I82.409 Acute embolism and thrombosis of unspecified deep veins of unspecified lower extremity
CPT/HCPCS: 36415; 80048; 82728; 83540; 83880; 84466; 85025

== ENCOUNTER 2020-09-19 16:08 | Emergency (ER) | payer MEDICARE, OTHER ==
--- NOTE | 2020-09-19 16:31 | ED Physician Documentation ---
PD HPI DYSPNEA - Stated complaint Stated Complaint: LOW O2 SATS - Chief complaint Chief Complaint: Cardiac - History obtained from History obtained from: Patient - Additional information Additional information: 85-year-old gentleman with history of anemia, heart failure, relatively recent diagnosis of DVT on Eliquis, coronary disease. He was admitted here for a few nights in the middle of August for heart failure exacerbated by anemia. He was diagnosed with a DVT in the right leg. He has been on Eliquis since then. The cause of his anemia is unknown. He says he has had upper and lower endoscopies which were negative and tests for occult blood in the stool were negative. He has had progressive shortness of breath over days with orthopnea. There is no associated chest pain. Does have slightly worse than normal pedal edema despite being on a current dose of 60 mg of Lasix a day. Last echo reviewed. EF 50%. Review of Systems Ten Systems: 10 systems reviewed and negative Constitutional: reports: Fatigue Cardiac: reports: Pedal edema. denies: Chest pain / pressure Respiratory: reports: Dyspnea. denies: Cough GI: denies: Nausea, Vomiting, Diarrhea PD PAST MEDICAL HISTORY - Past Medical History Cardiovascular: Hypertension, High cholesterol, Coronary artery disease, [place], Atrial flutter Respiratory: None Endocrine/Autoimmune: None GI: GERD, Hiatal hernia, Colon polyps : Benign prostate hypertrophy HEENT: Chronic vision loss Psych: None Musculoskeletal: Osteoarthritis, Rheumatoid arthritis, Chronic back pain Derm: Other - Past Surgical History Past Surgical History: Yes General: Colonoscopy Ortho: Knee replacement Cardiovascular: CABG, Coronary stent HEENT: Cataracts, Tonsil/Adenoidectomy - Present Medications Home Medications: Ambulatory Orders Medication Instructions Recorded Confirmed lisinopriL [Zestril] 20 mg PO BID 01/18/14 08/28/20 Finasteride 5 mg PO QDAC 03/01/14 08/28/20 Furosemide [Lasix] 40 mg PO DAILY 03/01/14 08/28/20 Rosuvastatin [Crestor] 10 mg PO DAILY 03/04/14 08/28/20 sulfaSALAzine [Azulfidine] 1,500 mg PO BID 03/04/14 08/28/20 Carvedilol [Coreg] 25 mg PO BID 06/12/14 08/28/20 amLODIPine [Norvasc] 5 mg PO DAILY 09/10/16 08/28/20 hydrALAZINE [Apresoline] 25 mg PO BID 09/10/16 08/28/20 Aspirin [Adult Aspirin Regimen] 81 mg PO DAILY 09/11/19 08/28/20 Cetirizine [ZyrTEC] 10 mg PO DAILY 08/28/20 08/28/20 Nitroglycerin [Nitrostat] 0.4 mg SL Q5MIN PRN 08/28/20 08/28/20 Pantoprazole [Protonix] 40 mg PO DAILY 08/28/20 08/28/20 Ferrous Gluconate 240 mg PO BID #60 tablet 08/31/20 Apixaban [Eliquis] 10 mg PO BID #72 tablet 09/01/20 Furosemide [Lasix] 80 mg PO DAILY #7 tablet 09/01/20 - Allergies Allergies/Adverse Reactions: Allergies Allergy/AdvReac Type Severity Reaction Status Date / Time atorvastatin calcium * Allergy Severe Anaphylaxis Verified 09/19/20 16:20 [From Lipitor] amoxicillin [Amoxicillin] Allergy Intermediate Rash Verified 09/19/20 16:20 - Social History Does the pt smoke?: No Smoking Status: Never smoker Does the pt drink ETOH?: No Does the pt have substance abuse?: No - Immunizations Immunizations are current?: Yes PD ED PE NORMAL - Vitals Vital signs reviewed: Yes - General General: Alert and oriented X 3, No acute distress - HEENT HEENT: PERRL, EOMI - Neck Neck: Supple, no meningeal sign, No bony TTP - Cardiac Cardiac: RRR, Other (Subtle systolic murmur heard best at the left lower sternal border, frequent PVCs on the monitor.) - Respiratory Respiratory: No respiratory distress, Clear bilaterally - Abdomen Abdomen: Non tender - Extremities Extremities: Other (4+ right and 3+ left pedal edema, pitting) - Neuro Neuro: Alert and oriented X 3, Normal speech Results - Vitals Vitals: Vital Signs - 24 hr 09/19/20 09/19/20 09/19/20 16:10 16:21 16:42 Temperature 36.7 C Heart Rate 74 69 66 Respiratory 20 16 17 Rate Blood Pressure 151/80 H 151/80 H 130/58 L O2 Saturation 100 100 97 09/19/20 09/19/20 09/19/20 17:43 18:09 18:19 Temperature 36.9 C 36.9 C 36.7 C Heart Rate 64 64 61 Respiratory 13 22 16 Rate Blood Pressure 144/76 H 154/74 H 167/78 H O2 Saturation 100 09/19/20 09/19/20 09/19/20 18:34 18:49 19:00 Temperature 36.8 C 36.7 C Heart Rate 72 70 67 Respiratory 23 24 19 Rate Blood Pressure 141/86 H 156/86 H 156/85 H O2 Saturation 09/19/20 09/19/20 09/19/20 19:30 19:45 20:00 Temperature 36.9 C Heart Rate 61 61 61 Respiratory 21 22 19 Rate Blood Pressure 165/79 H 163/85 H 164/85 H O2 Saturation 09/19/20 09/19/20 09/19/20 20:21 20:37 21:14 Temperature 37.1 C 36.8 C Heart Rate 74 77 68 Respiratory 16 21 24 Rate Blood Pressure 172/87 H 150/70 H 153/75 H O2 Saturation 09/19/20 21:18 Temperature Heart Rate 62 Respiratory 17 Rate Blood Pressure 151/90 H O2 Saturation 97 Oxygen O2 Source [] Room air O2 Source [] Room air O2 Source Room air - EKG (time done) 1626 Rate: Rate (enter#) (66) Rhythm: NSR (w pvcs) Intervals: Other (IVCD) Ischemia: Q waves (small inferior) Computer interpretation: Agree with computer - Labs Labs: Laboratory Tests 09/19/20 09/19/20 09/19/20 16:38 16:38 16:38 WBC 3.8 L RBC 2.43 L Hgb 7.9 L Hct 25.5 L MCV 104.9 H MCH 32.5 H MCHC 31.0 L Plt Count 228 MPV 10.0 Neut # (Auto) 2.4 Lymph # (Auto) 0.9 L [place] # (Auto) 0.4 Eos # (Auto) 0.0 Baso # (Auto) 0.0 Absolute Nucleated RBC 0.00 Nucleated RBC % 0.0 WBC Morphology NORMAL APPEARANCE Platelet Estimate NORMAL (130-450,000) Platelet Morphology NORMAL APPEARANCE RBC Morph Micro Appear 1+ SCHISTOCYTES Sodium 139 Potassium 3.6 Chloride 106 Carbon Dioxide 23 Anion Gap 10.0 BUN 30 H Creatinine 1.5 H Estimated GFR (MDRD) 44 L Glucose 132 H Calcium 8.6 Troponin I High Sens B-Natriuretic Peptide Blood Type O POSITIVE Antibody Screen NEGATIVE Crossmatch IS Only See Detail 09/19/20 09/19/20 16:38 16:38 WBC RBC Hgb Hct MCV MCH MCHC Plt Count MPV Neut # (Auto) Lymph # (Auto) [place] # (Auto) Eos # (Auto) Baso # (Auto) Absolute Nucleated RBC Nucleated RBC % WBC Morphology Platelet Estimate Platelet Morphology RBC Morph Micro Appear Sodium Potassium Chloride Carbon Dioxide Anion Gap BUN Creatinine Estimated GFR (MDRD) Glucose Calcium Troponin I High Sens 18.9 B-Natriuretic Peptide 994 H Blood Type Antibody Screen Crossmatch IS Only PD MEDICAL DECISION MAKING - ED course ED course: 85-year-old gentleman presents with shortness of breath, he has a history of heart failure and anemia of unclear etiology. Given his history of coronary disease and heart failure seems reasonable to give him 1 unit of blood for the hemoglobin of 7.9. I talked with his daughter who is a physician by phone and encouraged hematology follow-up. It sounds like GI source has been ruled out. It may be due to anemia of chronic disease. Other indicators are stable except for BNP which is creeping up. Patient did not want to have his diuretics increased. Departure - Departure Disposition: 01 Home, Self Care Clinical Impression: Acute on chronic diastolic (congestive) heart failure, Anemia, Coronary artery disease Condition: Stable Instructions: ED CHF General Comments: You were seen tonight for congestive heart failure, your work-up demonstrates persistent anemia of unclear etiology, moderate heart failure with normal vital signs. Follow-up with your primary care physician as soon as possible. I also recommend following up with a orthopaedic general for consideration for alternative causes of your anemia since it does not seem to be gastrointestinal in origin. Discharge Date/Time: 09/19/20 21:36
[2020-09-19 16:45] LABS: BASOPHILS % (AUTO) 0.5 %; EOSINOPHILS % (AUTO) 0.8 %; HGB - HEMOGLOBIN 7.9 g/dL (14.0-18.0); LYMPHOCYTES # (AUTO) 0.9 10^3/uL (1.5-3.5); LYMPHOCYTES % (AUTO) 23.3 %; MEAN CORPUSCULAR HEMOGLOBIN 32.5 pg (27.0-31.0); MEAN CORPUSCULAR VOLUME 104.9 fL (80.0-94.0); MONOCYTES # (AUTO) 0.4 10^3/uL (0.0-1.0); MONOCYTES % (AUTO) 10.3 %; NEUTROPHILS # (AUTO) 2.4 10^3/uL (1.5-6.6); NEUTROPHILS % (AUTO) 64.8 %; PLT - PLATELET COUNT 228 10^3/uL (130-450); RED BLOOD COUNT 2.43 10^6/uL (4.70-6.10); WHITE BLOOD COUNT 3.8 x10^3/uL (4.8-10.8)
[2020-09-19 16:56] LABS: CALCIUM 8.6 mg/dL (8.5-10.3); CREATININE 1.5 mg/dL (0.6-1.2)
--- NOTE | 2020-09-19 17:17 | XRAY Report ---
PROCEDURE: Chest 1 View X-Ray INDICATIONS: dyspnea TECHNIQUE: One view of the chest was acquired. COMPARISON: 09/01/2020 FINDINGS: Surgical changes and devices: Multiple median sternotomy wires are intact.. Lungs and pleura: No pleural effusions or pneumothorax. Mild diffuse interstitial prominence with guardado ggestion of mild vascular congestion. No focal consolidation. A few Dennis B lines are noted. Mediastinum: Mediastinal contours appear normal. Heart size is enlarged. Bones and chest wall: No suspicious bony lesions. Overlying soft tissues appear unremarkable. IMPRESSION: Cardiomegaly with findings compatible with early/mild pulmonary edema/CHF. Reviewed by: Rob Pablo MD on 09/19/2020 4:16 PM [facility] Approved by: Rob Pablo MD on 09/19/2020 4:16 PM [facility] Station ID: [id number]
[2020-09-19 18:34] LABS: PLATELET ESTIMATE, MANUAL NORMAL (130-450,000) (NORMAL); PLATELET MORPHOLOGY NORMAL APPEARANCE (NORMAL)
[2020-09-19 21:20] VITALS: BP 151/90
== END 2020-09-19 21:36 | disposition home or self-care (01) ==
LOC: ED 16:08
DX: I50.33 Acute on chronic diastolic (congestive) heart failure (principal); I11.0 Hypertensive heart disease with heart failure; D64.9 Anemia, unspecified; I49.3 Ventricular premature depolarization; I25.10 Atherosclerotic heart disease of native coronary artery without angina pectoris; Z95.1 Presence of aortocoronary bypass graft; Z95.5 Presence of coronary angioplasty implant and graft; I25.2 Old myocardial infarction; Z86.718 Personal history of other venous thrombosis and embolism; Z79.01 Long term (current) use of anticoagulants; Z79.82 Long term (current) use of aspirin
CPT/HCPCS: 36415; 36430; 71045; 80048; 83880; 84484; 85025; 86850; 86900; 86901; 86920; 93005; 99285; P9016

== ENCOUNTER 2020-10-02 08:00 | Outpatient (CLI) | payer MEDICARE, OTHER ==
[2020-10-02 18:08] LABS: ABSOLUTE RETICS # AUTO 0.101 10^6/uL (0.020-0.110); BASOPHILS % (AUTO) 0.3 %; EOSINOPHILS % (AUTO) 0.6 %; HGB - HEMOGLOBIN 8.8 g/dL (14.0-18.0); LYMPHOCYTES # (AUTO) 0.8 10^3/uL (1.5-3.5); LYMPHOCYTES % (AUTO) 21.2 %; MEAN CORPUSCULAR HEMOGLOBIN 32.5 pg (27.0-31.0); MEAN CORPUSCULAR VOLUME 108.1 fL (80.0-94.0); MEAN PLATELET VOLUME 10.8 fL (7.4-11.4); MONOCYTES # (AUTO) 0.4 10^3/uL (0.0-1.0); MONOCYTES % (AUTO) 11.3 %; NEUTROPHILS # (AUTO) 2.3 10^3/uL (1.5-6.6); NEUTROPHILS % (AUTO) 66.3 %; PLT - PLATELET COUNT 203 10^3/uL (130-450); RED BLOOD COUNT 2.71 10^6/uL (4.70-6.10); RED CELL DISTRIBUTION WIDTH 19.3 % (12.0-15.0); WHITE BLOOD COUNT 3.5 x10^3/uL (4.8-10.8)
[2020-10-02 18:55] LABS: FERRITIN 61.9 ng/mL (23.9-336.2)
[2020-10-02 18:58] LABS: FOLATE 7.83 ng/mL (5.90 - >24.8)
[2020-10-02 19:02] LABS: % IRON SATURATION 33 % (20-50); IRON 136 ug/dL (45-182); TOTAL IRON BINDING CAPACITY 414 ug/dL (250-450); TRANSFERRIN 296 mg/dL (180-329)
[2020-10-02 19:03] LABS: CRP - C-REACTIVE PROTEIN < 1.0 mg/dL (0-1.0)
== END 2020-10-02 23:59 | disposition home or self-care (01) ==
LOC: LAB.WCP 08:00
PROVIDERS: ATTEND Internal Medicine
DX: D64.9 Anemia, unspecified (principal); M06.9 Rheumatoid arthritis, unspecified
CPT/HCPCS: 36415; 81599; 82607; 82728; 82746; 83540; 84466; 85025; 85045; 85651; 86140; 88184; 88185; 88189

== ENCOUNTER 2020-10-08 08:00 | Outpatient (CLI) | payer MEDICARE, OTHER ==
[2020-10-08 18:46] LABS: BASOPHILS % (AUTO) 0.3 %; EOSINOPHILS % (AUTO) 0.9 %; HGB - HEMOGLOBIN 8.7 g/dL (14.0-18.0); LYMPHOCYTES # (AUTO) 0.7 10^3/uL (1.5-3.5); LYMPHOCYTES % (AUTO) 19.8 %; MEAN CORPUSCULAR HEMOGLOBIN 32.5 pg (27.0-31.0); MEAN CORPUSCULAR HGB CONC 29.7 g/dL (32.0-36.0); MEAN CORPUSCULAR VOLUME 109.3 fL (80.0-94.0); MEAN PLATELET VOLUME 10.8 fL (7.4-11.4); MONOCYTES # (AUTO) 0.4 10^3/uL (0.0-1.0); NEUTROPHILS # (AUTO) 2.2 10^3/uL (1.5-6.6); NEUTROPHILS % (AUTO) 65.7 %; PLT - PLATELET COUNT 218 10^3/uL (130-450); RED BLOOD COUNT 2.68 10^6/uL (4.70-6.10); WHITE BLOOD COUNT 3.4 x10^3/uL (4.8-10.8)
== END 2020-10-08 23:59 | disposition home or self-care (01) ==
LOC: LAB.WCP 08:00
PROVIDERS: ATTEND Internal Medicine
DX: D64.9 Anemia, unspecified (principal)
CPT/HCPCS: 36415; 85025

== ENCOUNTER 2020-10-15 08:00 | Outpatient (CLI) | payer MEDICARE, OTHER ==
[2020-10-15 13:00] LABS: BASOPHILS % (AUTO) 0.2 %; HGB - HEMOGLOBIN 9.2 g/dL (14.0-18.0); LYMPHOCYTES # (AUTO) 0.9 10^3/uL (1.5-3.5); LYMPHOCYTES % (AUTO) 21.2 %; MEAN CORPUSCULAR HGB CONC 30.9 g/dL (32.0-36.0); MEAN CORPUSCULAR VOLUME 106.8 fL (80.0-94.0); MEAN PLATELET VOLUME 10.7 fL (7.4-11.4); MONOCYTES # (AUTO) 0.5 10^3/uL (0.0-1.0); MONOCYTES % (AUTO) 12.7 %; NEUTROPHILS # (AUTO) 2.6 10^3/uL (1.5-6.6); NEUTROPHILS % (AUTO) 64.7 %; PLT - PLATELET COUNT 237 10^3/uL (130-450); RED BLOOD COUNT 2.79 10^6/uL (4.70-6.10); RED CELL DISTRIBUTION WIDTH 16.2 % (12.0-15.0)
== END 2020-10-15 23:59 | disposition home or self-care (01) ==
LOC: LAB.WCP 08:00
PROVIDERS: ATTEND Internal Medicine
DX: D64.9 Anemia, unspecified (principal)
CPT/HCPCS: 36415; 85025

== ENCOUNTER 2020-10-22 08:00 | Outpatient (CLI) | payer MEDICARE, OTHER ==
[2020-10-22 17:52] LABS: BASOPHILS % (AUTO) 0.3 %; EOSINOPHILS % (AUTO) 1.2 %; LYMPHOCYTES # (AUTO) 0.9 10^3/uL (1.5-3.5); LYMPHOCYTES % (AUTO) 25.6 %; MEAN CORPUSCULAR HEMOGLOBIN 32.7 pg (27.0-31.0); MEAN CORPUSCULAR HGB CONC 30.3 g/dL (32.0-36.0); MEAN PLATELET VOLUME 11.1 fL (7.4-11.4); MONOCYTES # (AUTO) 0.4 10^3/uL (0.0-1.0); MONOCYTES % (AUTO) 12.3 %; NEUTROPHILS % (AUTO) 60.3 %; PLT - PLATELET COUNT 229 10^3/uL (130-450); RED BLOOD COUNT 2.75 10^6/uL (4.70-6.10); RED CELL DISTRIBUTION WIDTH 14.9 % (12.0-15.0); WHITE BLOOD COUNT 3.3 x10^3/uL (4.8-10.8)
== END 2020-10-22 23:59 | disposition home or self-care (01) ==
LOC: LAB.WCP 08:00
PROVIDERS: ATTEND Internal Medicine
DX: D64.9 Anemia, unspecified (principal)
CPT/HCPCS: 36415; 85025

== ENCOUNTER 2020-10-29 08:00 | Outpatient (CLI) | payer MEDICARE, OTHER ==
[2020-10-29 13:20] LABS: ALBUMIN 3.6 g/dL (3.2-5.5); ALBUMIN/GLOBULIN RATIO 2.3 (1.0-2.2); BILIRUBIN,TOTAL 0.5 mg/dL (0.2-1.0); CALCIUM 8.7 mg/dL (8.5-10.3); CREATININE 1.5 mg/dL (0.6-1.2); TOTAL PROTEIN 5.2 g/dL (6.7-8.2)
== END 2020-10-29 23:59 | disposition home or self-care (01) ==
LOC: LAB.WCP 08:00
PROVIDERS: ATTEND Internal Medicine
DX: D64.9 Anemia, unspecified (principal)
CPT/HCPCS: 36415; 80053; 82728; 83540; 84466

== ENCOUNTER 2020-10-31 08:00 | Outpatient (CLI) | payer MEDICARE, OTHER | END 2020-10-31 23:59 | disposition home or self-care (01) | LOC: LAB.WCP 08:00 | PROVIDERS: ATTEND Internal Medicine | DX: D64.9 Anemia, unspecified (principal) | CPT/HCPCS: 36415; 85025 ==

== ENCOUNTER 2020-11-05 08:00 | Outpatient (CLI) | payer MEDICARE, OTHER ==
[2020-11-05 11:52] LABS: BASOPHILS % (AUTO) 0.3 %; EOSINOPHILS % (AUTO) 0.3 %; HGB - HEMOGLOBIN 8.2 g/dL (14.0-18.0); LYMPHOCYTES # (AUTO) 0.6 10^3/uL (1.5-3.5); LYMPHOCYTES % (AUTO) 20.4 %; MEAN CORPUSCULAR HEMOGLOBIN 32.5 pg (27.0-31.0); MEAN CORPUSCULAR HGB CONC 31.1 g/dL (32.0-36.0); MEAN CORPUSCULAR VOLUME 104.8 fL (80.0-94.0); MEAN PLATELET VOLUME 10.9 fL (7.4-11.4); MONOCYTES # (AUTO) 0.4 10^3/uL (0.0-1.0); MONOCYTES % (AUTO) 13.6 %; NEUTROPHILS # (AUTO) 1.9 10^3/uL (1.5-6.6); NEUTROPHILS % (AUTO) 65.1 %; PLT - PLATELET COUNT 214 10^3/uL (130-450); RED BLOOD COUNT 2.52 10^6/uL (4.70-6.10); RED CELL DISTRIBUTION WIDTH 14.7 % (12.0-15.0); WHITE BLOOD COUNT 2.9 x10^3/uL (4.8-10.8)
[2020-11-05 12:31] LABS: PLATELET ESTIMATE, MANUAL NORMAL (130-450,000) (NORMAL); PLATELET MORPHOLOGY NORMAL APPEARANCE (NORMAL); RBC MORPHOLOGY (MULTIPLE) 2+ HYPOCHROMASIA (NORMAL)
== END 2020-11-05 23:59 | disposition home or self-care (01) ==
LOC: LAB.WCP 08:00
PROVIDERS: ATTEND Internal Medicine
DX: D64.9 Anemia, unspecified (principal)
CPT/HCPCS: 36415; 85025

== ENCOUNTER 2020-11-12 11:21 | Outpatient (CLI) | payer MEDICARE, OTHER ==
[2020-11-12 18:00] LABS: BASOPHILS % (AUTO) 0.3 %; EOSINOPHILS % (AUTO) 0.9 %; LYMPHOCYTES # (AUTO) 0.7 10^3/uL (1.5-3.5); LYMPHOCYTES % (AUTO) 20.8 %; MEAN CORPUSCULAR HEMOGLOBIN 30.3 pg (27.0-31.0); MEAN CORPUSCULAR HGB CONC 30.2 g/dL (32.0-36.0); MEAN CORPUSCULAR VOLUME 100.4 fL (80.0-94.0); MEAN PLATELET VOLUME 10.5 fL (7.4-11.4); MONOCYTES # (AUTO) 0.4 10^3/uL (0.0-1.0); MONOCYTES % (AUTO) 11.4 %; NEUTROPHILS # (AUTO) 2.1 10^3/uL (1.5-6.6); NEUTROPHILS % (AUTO) 66.3 %; PLT - PLATELET COUNT 230 10^3/uL (130-450); RED BLOOD COUNT 2.64 10^6/uL (4.70-6.10); RED CELL DISTRIBUTION WIDTH 15.3 % (12.0-15.0); WHITE BLOOD COUNT 3.2 x10^3/uL (4.8-10.8)
== END 2020-11-12 23:59 | disposition home or self-care (01) ==
LOC: LAB.WCP 11:21
PROVIDERS: ATTEND Internal Medicine
DX: D64.9 Anemia, unspecified (principal)
CPT/HCPCS: 36415; 85025

== ENCOUNTER 2020-11-13 11:51 | Emergency (ER) | payer MEDICARE, OTHER ==
--- NOTE | 2020-11-13 13:45 | ED Physician Documentation ---
History of Present Illness - Stated complaint Stated Complaint: LOW HEMOGLOBIN - Chief complaint Chief Complaint: Cardiac - History obtained from History obtained from: Patient - History of Present Illness Timing: Today Pain level max: 0 Pain level now: 0 - Additonal information Additional information: Patient is an 85-year-old male who presents to the emergency department after being told by his doctor to come here to receive 2 units of blood. He has chronic anemia. Normal hemoglobin is around 8. He is scheduled for iron infusions next week at the [facility] [place] clinic. Patient states that he is short of breath, but no more so than usual. He sleeps in the loft and walks upstairs every night without stopping. Nothing makes it better or worse. He is currently not on oral iron. Has been and iron deficiency anemic in the past. Patient states that he is in his usual state of health currently. Review of Systems Constitutional: denies: Fever, Chills GI: denies: Vomiting, Diarrhea Skin: denies: Rash PD PAST MEDICAL HISTORY - Past Medical History Past Medical History: Yes Cardiovascular: Hypertension, High cholesterol, Coronary artery disease, [place], Atrial flutter Respiratory: None Neuro: None Endocrine/Autoimmune: None GI: GERD, Hiatal hernia, Colon polyps : Benign prostate hypertrophy HEENT: Chronic vision loss Psych: None Musculoskeletal: Osteoarthritis, Rheumatoid arthritis, Chronic back pain Derm: Other - Past Surgical History Past Surgical History: Yes General: Colonoscopy Ortho: Knee replacement Cardiovascular: CABG, Coronary stent HEENT: Cataracts, Tonsil/Adenoidectomy - Present Medications Home Medications: Ambulatory Orders Medication Instructions Recorded Confirmed lisinopriL [Zestril] 20 mg PO BID 01/18/14 08/28/20 Finasteride 5 mg PO QDAC 03/01/14 08/28/20 Furosemide [Lasix] 40 mg PO DAILY 03/01/14 08/28/20 Rosuvastatin [Crestor] 10 mg PO DAILY 03/04/14 08/28/20 sulfaSALAzine [Azulfidine] 1,500 mg PO BID 03/04/14 08/28/20 Carvedilol [Coreg] 25 mg PO BID 06/12/14 08/28/20 amLODIPine [Norvasc] 5 mg PO DAILY 09/10/16 08/28/20 hydrALAZINE [Apresoline] 25 mg PO BID 09/10/16 08/28/20 Aspirin [Adult Aspirin Regimen] 81 mg PO DAILY 09/11/19 08/28/20 Cetirizine [ZyrTEC] 10 mg PO DAILY 08/28/20 08/28/20 Nitroglycerin [Nitrostat] 0.4 mg SL Q5MIN PRN 08/28/20 08/28/20 Pantoprazole [Protonix] 40 mg PO DAILY 08/28/20 08/28/20 Ferrous Gluconate 240 mg PO BID #60 tablet 08/31/20 Apixaban [Eliquis] 10 mg PO BID #72 tablet 09/01/20 Furosemide [Lasix] 80 mg PO DAILY #7 tablet 09/01/20 - Allergies Allergies/Adverse Reactions: Allergies Allergy/AdvReac Type Severity Reaction Status Date / Time atorvastatin calcium * Allergy Severe Anaphylaxis Verified 11/13/20 12:06 [From Lipitor] amoxicillin [Amoxicillin] Allergy Intermediate Rash Verified 11/13/20 12:06 - Social History Does the pt smoke?: No Smoking Status: Never smoker Does the pt drink ETOH?: No Does the pt have substance abuse?: No - Immunizations Immunizations are current?: Yes - POLST Patient has POLST: No PD ED PE NORMAL - Vitals Vital signs reviewed: Yes - General General: Alert and oriented X 3, No acute distress - HEENT HEENT: Moist mucous membranes - Neck Neck: Supple, no meningeal sign - Cardiac Cardiac: RRR, Strong equal pulses - Respiratory Respiratory: No respiratory distress, Clear bilaterally - Derm Derm: Warm and dry - Extremities Extremities: Other (1+ bilateral lower extremity edema) - Neuro Neuro: Alert and oriented X 3 - Psych Psych: Normal mood, Normal affect Results - Vitals Vitals: Vital Signs - 24 hr 11/13/20 11/13/20 11/13/20 11:59 15:12 15:20 Temperature 36.4 C L 36.6 C 36.5 C Heart Rate 77 76 77 Respiratory 19 16 16 Rate Blood Pressure 135/87 H 138/75 H 136/74 H O2 Saturation 98 11/13/20 11/13/20 11/13/20 15:31 16:23 16:28 Temperature 36.5 C 36.4 C L 36.6 C Heart Rate 74 68 64 Respiratory 15 16 22 Rate Blood Pressure 114/68 141/68 H 145/77 H O2 Saturation 95 Oxygen O2 Source [With Activity] Room air O2 Source [Without Activity] Room air O2 Source Room air - Labs Labs: Laboratory Tests 11/13/20 11/13/20 11/13/20 13:33 13:33 13:33 WBC 3.2 L RBC 2.67 L Hgb 8.3 L Hct 26.0 L MCV 97.4 H MCH 31.1 H MCHC 31.9 L RDW 15.5 H Plt Count 242 MPV 10.4 Neut # (Auto) 2.0 Lymph # (Auto) 0.8 L [place] # (Auto) 0.3 Eos # (Auto) 0.0 Baso # (Auto) 0.0 Absolute Nucleated RBC 0.00 Nucleated RBC % 0.0 Sodium 140 Potassium 3.5 Chloride 106 Carbon Dioxide 25 Anion Gap 9.0 BUN 27 H Creatinine 1.2 Estimated GFR (MDRD) 57 L Glucose 133 H Calcium 8.9 Iron 31 L TIBC 465 H % Saturation 7 L Transferrin 332 H Total Bilirubin 0.8 AST 41 ALT 30 Alkaline Phosphatase 30 L B-Natriuretic Peptide Total Protein 5.0 L Albumin 3.7 Globulin 1.3 L Albumin/Globulin Ratio 2.8 H Lipase 79 H Blood Type O POSITIVE Antibody Screen NEGATIVE Crossmatch IS Only See Detail 11/13/20 13:33 WBC RBC Hgb Hct MCV MCH MCHC RDW Plt Count MPV Neut # (Auto) Lymph # (Auto) [place] # (Auto) Eos # (Auto) Baso # (Auto) Absolute Nucleated RBC Nucleated RBC % Sodium Potassium Chloride Carbon Dioxide Anion Gap BUN Creatinine Estimated GFR (MDRD) Glucose Calcium Iron TIBC % Saturation Transferrin Total Bilirubin AST ALT Alkaline Phosphatase B-Natriuretic Peptide 972 H Total Protein Albumin Globulin Albumin/Globulin Ratio Lipase Blood Type Antibody Screen Crossmatch IS Only PD MEDICAL DECISION MAKING - ED course Complexity details: reviewed results, re-evaluated patient, considered differential, d/w patient ED course: 85-year-old male with chronic iron deficiency anemia. His hemoglobin appears stable over the past several months. His primary care provider sent him for 2 units of blood. I contacted the blood bank physician irrigation manager, she discussed the case with his primary care physician as this is outside of her normal guidelines, she has released 1 unit of blood for the patient. The patient was transfused 1 unit of packed red blood cells. A dose of Lasix was given. No reaction. No complications. He has an appointment next week with the [facility] [place] clinic for iron infusion patient counseled regarding signs and symptoms for which I believe and urgent re-evaluation would be necessary. Patient with good understanding of and agreement to plan and is comfortable going home at this time This document was made in part using voice recognition software. While efforts are made to proofread this document, sound alike and grammatical errors may occur. Dr. Oakes (blood bank MD) released 1 unit of blood for transfusion Departure - Departure Disposition: Home, Self Care Clinical Impression: Iron deficiency anemia Qualifiers: Iron deficiency anemia type: unspecified iron deficiency Qualified Code(s): D50.9 - Iron deficiency anemia, unspecified Condition: Good Instructions: ED Anemia Iron Deficiency Follow-Up: your,doctor in 1 week [Other] Comments: You received a blood transfusion today. Follow-up with your doctor for further care. You have an iron infusion scheduled on 20 November in the [facility] [place] [facility] clinic. They may be able to move this up to Tuesday. Discharge Date/Time: 11/13/20 16:46
[2020-11-13 13:47] LABS: BASOPHILS % (AUTO) 0.3 %; EOSINOPHILS % (AUTO) 0.6 %; HGB - HEMOGLOBIN 8.3 g/dL (14.0-18.0); LYMPHOCYTES # (AUTO) 0.8 10^3/uL (1.5-3.5); LYMPHOCYTES % (AUTO) 24.5 %; MEAN CORPUSCULAR HEMOGLOBIN 31.1 pg (27.0-31.0); MEAN CORPUSCULAR HGB CONC 31.9 g/dL (32.0-36.0); MEAN CORPUSCULAR VOLUME 97.4 fL (80.0-94.0); MEAN PLATELET VOLUME 10.4 fL (7.4-11.4); MONOCYTES # (AUTO) 0.3 10^3/uL (0.0-1.0); MONOCYTES % (AUTO) 10.7 %; NEUTROPHILS % (AUTO) 63.9 %; PLT - PLATELET COUNT 242 10^3/uL (130-450); RED BLOOD COUNT 2.67 10^6/uL (4.70-6.10); RED CELL DISTRIBUTION WIDTH 15.5 % (12.0-15.0); WHITE BLOOD COUNT 3.2 x10^3/uL (4.8-10.8)
[2020-11-13 14:14] LABS: ALBUMIN 3.7 g/dL (3.2-5.5); ALBUMIN/GLOBULIN RATIO 2.8 (1.0-2.2); BILIRUBIN,TOTAL 0.8 mg/dL (0.2-1.0); CALCIUM 8.9 mg/dL (8.5-10.3); CREATININE 1.2 mg/dL (0.6-1.2)
[2020-11-13] MEDS ORDERED: FUROSEMIDE 40 MG/4 ML VIAL IVP STA (14:39)
[2020-11-13 16:29] VITALS: BP 145/77
== END 2020-11-13 16:46 | disposition home or self-care (01) ==
LOC: ED 11:51
DX: D50.9 Iron deficiency anemia, unspecified (principal); I10 Essential (primary) hypertension; Z95.1 Presence of aortocoronary bypass graft
CPT/HCPCS: 36415; 36430; 80053; 83540; 83690; 83880; 84466; 85025; 86850; 86900; 86901; 86920; 96374; 99284; 99285; P9016

== ENCOUNTER 2020-11-19 08:00 | Outpatient (CLI) | payer MEDICARE, OTHER ==
[2020-11-19 19:00] LABS: BASOPHILS % (AUTO) 0.3 %; HGB - HEMOGLOBIN 7.8 g/dL (14.0-18.0); LYMPHOCYTES # (AUTO) 0.5 10^3/uL (1.5-3.5); LYMPHOCYTES % (AUTO) 16.4 %; MEAN CORPUSCULAR HEMOGLOBIN 29.3 pg (27.0-31.0); MEAN CORPUSCULAR HGB CONC 29.9 g/dL (32.0-36.0); MEAN CORPUSCULAR VOLUME 98.1 fL (80.0-94.0); MEAN PLATELET VOLUME 10.6 fL (7.4-11.4); MONOCYTES # (AUTO) 0.4 10^3/uL (0.0-1.0); MONOCYTES % (AUTO) 13.4 %; NEUTROPHILS # (AUTO) 2.1 10^3/uL (1.5-6.6); NEUTROPHILS % (AUTO) 68.6 %; PLT - PLATELET COUNT 206 10^3/uL (130-450); RED BLOOD COUNT 2.66 10^6/uL (4.70-6.10); RED CELL DISTRIBUTION WIDTH 15.7 % (12.0-15.0)
[2020-11-19 21:47] LABS: DIFFERENTIAL COMMENT MANUAL=AUTO DIFF; PLATELET ESTIMATE, MANUAL NORMAL (130-450,000) (NORMAL); PLATELET MORPHOLOGY NORMAL APPEARANCE (NORMAL)
== END 2020-11-19 23:59 | disposition home or self-care (01) ==
LOC: LAB.WCP 08:00
PROVIDERS: ATTEND Internal Medicine
DX: D64.9 Anemia, unspecified (principal)
CPT/HCPCS: 36415; 85025

== ENCOUNTER 2020-11-26 09:17 | Outpatient (CLI) | payer MEDICARE, OTHER ==
--- OUTSIDE RECORDS SUMMARY | 2020-11-26 09:21 | EXTERNAL MEDICAL SUMMARY RPT | Continuity of Care Document ---
:1935 Demographics Phone Unavailable Preferred Language Armenian Marital Status Unknown Congregational Affiliation Unknown Race Unknown Ethnic Group Unknown Author Organization [facility] Address [address] [place] [address] Phone Care Team Providers Name Role Phone MD Unavailable Unavailable Unavailable Unavailable Leonid Unavailable Unavailable Asif Unavailable Unavailable Fritzhallandale Unavailable Unavailable Problems Allergies date description facility ASPIRIN [facility] ATORVASTATIN [facility] BEE VENOM [facility] DICLOFENAC [facility] FLUOXETINE [facility] IBUPROFEN [facility] LORAZEPAM [facility] MORPHINE SULFATE [facility] POLLEN [facility]TRACT [facility] SILICONE [facility] NO KNOWN ENVIRONMENTAL ALLERGIES [facility] PENICILLINS [facility] SULFA ANTIBIOTICS [facility] LACTOSE [facility] TOMATO (SOLANUM LYCOPERSICUM) [facility] NO ALLERGY INFORMATION AVAILABLE [facility] PENICILLINS [facility] SULFA (SULFONAMIDE ANTIBIOTICS) [facility] NO KNOWN ALLERGIES [facility] CITRUS AND DERIVATIVES [facility] edical Center LATEX [facility] MACADAMIA NUT OIL [facility] LORAZEPAM [facility] CODEINE [facility] ASPIRIN [facility] METHOTREXATE [facility] CEPHALEXIN [facility] DIPHENHYDRAMINE HCL [facility]aura [facility] NABUMETONE [facility] LEVOFLOXACIN [facility] BEE VENOM PROTEIN (HONEY BEE) [facility] ETANERCEPT [facility] LATEX [facility] MILK [facility] HYDROCODONE-ACETAMINOPHEN [facility] OXYCODONE-ACETAMINOPHEN [facility] VICKS 44 COUGH AND COLD [facility] ADHESIVE TAPE-SILICONES [facility] ACETAMINOPHEN (BULK) [facility] atorvastatin calcium * [facility] Klrfemh-Geg-Zyx Reductase Inhibitor [facility] No Known Drug Allergies [facility] [place] amoxicillin [facility] AMLODIPINE [facility] ATENOLOL [facility] CEPHALEXIN [facility] CIPROFLOXACIN [facility] CODEINE [facility] LISINOPRIL [facility] LOSARTAN [facility] NIFEDIPINE [facility] NITROFURANTOIN [facility] NO KNOWN ENVIRONMENTAL ALLERGIES [facility] NO KNOWN ALLERGIES [facility] CODEINE [facility] BEE VENOM PROTEIN (HONEY BEE) [facility] atorvastatin calcium * [facility] edical Center amoxicillin [facility] CELECOXIB [facility] TOLMETIN [facility] TRAZODONE [facility] NSAIDS [facility] SULFA ANTIBIOTICS [facility] ADHESIVE [facility] PREGABALIN [facility] LEMON [facility] MORPHINE [facility] BACLOFEN [facility] METOPROLOL [facility] AMLODIPINE [facility] LISINOPRIL [facility] NITROGLYCERIN [facility] IOD[facility] DULOXET[facility] LATEX [facility] ADHESIVE TAPE-SILICONES [facility] atorvastatin calcium * [facility] amoxicillin [facility] ANTITHYMOCYTE GLOBULIN [facility] METRONIDAZOLE [facility] NO KNOWN ENVIRONMENTAL ALLERGIES [facility] atorvastatin calcium * [facility] amoxicillin [facility] Medications date description facility 2020-09-03 00:00:00 null [facility] [place] [facility] 2020-09-03 00:00:00 null [facility] [place] [facility] 2020-09-03 00:00:00 null [facility] [place] [facility] 2020-09-03 00:00:00 null [facility] [place] [facility] 2020-09-03 00:00:00 APIXABAN [facility] [place] [facility] 2020-09-03 00:00:00 FERROUS GLUCONATE [facility] [place] [facility] 2020-09-03 00:00:00 APIXABAN [facility] [place] [facility] 2020-09-03 00:00:00 null [facility] [place] [facility] 2020-09-03 00:00:00 null [facility] [place] [facility] 2020-09-03 00:00:00 null [facility] [place] [facility] 2020-09-03 00:00:00 null [facility] [place] [facility] 2020-09-03 00:00:00 APIXABAN [facility] [place] [facility] 2020-09-03 00:00:00 FERROUS GLUCONATE [facility] [place] [facility] 2020-09-03 00:00:00 APIXABAN [facility] [place] [facility] 2020-10-02 00:00:00 null [facility] [place] [facility] 2020-10-02 00:00:00 null [facility] [place] [facility] 2020-10-02 00:00:00 BIOFLAVONOID PRODUCTS [facility] [place] [facility] 2020-10-06 00:00:00 null [facility] [place] [facility] 2020-10-06 00:00:00 null [facility] [place] [facility] 2020-10-06 00:00:00 CYANOCOBALAMIN [facility] [place] [facility] 2020-10-06 00:00:00 CYANOCOBALAMIN [facility] [place] [facility] 2020-11-17 00:00:00 null [facility] [place] [facility] 2020-11-17 00:00:00 null [facility] [place] [facility] 2020-11-17 00:00:00 FENOFIBRATE [facility] [place] [facility] 2020-11-17 00:00:00 FENOFIBRATE [facility] [place] [facility] Procedures date description facility 2020-09-08 00:00:00 Basic [facility]BMP[facility] [place] [facility] date description facility 2020-09-08 00:00:00 B-SERVICE DESK TEAM LEAD [facility] [place] [facility] date description facility 2020-09-08 00:00:00 CBC W/Diff/Plt [facility] [place] [facility] date description facility 2020-09-08 00:00:00 [facility] [place] [facility] date description facility 2020-09-08 00:00:00 Basic Metabolic Panel (BMP) [facility] date description facility 2020-09-08 00:00:00 B-SERVICE DESK TEAM LEAD [facility] [place] [facility] date description facility 2020-09-08 00:00:00 CBC W/Diff/Plt [facility] [place] [facility] date description facility 2020-09-08 00:00:00 [facility] [place] [facility] date description facility 2020-09-14 00:00:00 Iron & TIBC [facility] [place] [facility] date description facility 2020-09-14 00:00:00 Basic Metabolic Panel (BMP) [facility] date description facility 2020-09-14 00:00:00 Ferritin [facility] [place] [facility] date description facility 2020-09-14 00:00:00 B-SERVICE DESK TEAM LEAD [facility] [place] [facility] date description facility 2020-09-14 00:00:00 CBC W/Diff/Plt [facility] [place] [facility] date description facility 2020-09-14 00:00:00 [facility] [place] [facility] date description facility 2020-09-14 00:00:00 Iron & TIBC [facility] [place] [facility] date description facility 2020-09-14 00:00:00 Basic Metabolic Panel (BMP) [facility] [place] [facility] date description facility 2020-09-14 00:00:00 Ferritin [facility] [place] [facility] date description facility 2020-09-14 00:00:00 B-SERVICE DESK TEAM LEAD [facility] [place] [facility] date description facility 2020-09-14 00:00:00 CBC W/Diff/Plt [facility] [place] [facility] date description facility 2020-09-14 00:00:00 [facility] [place] [facility] date description facility 2020-10-02 00:00:00 Iron & TIBC [facility] [place] [facility] date description facility 2020-10-02 00:00:00 VITAMIN B 12 [facility] [place] [facility] date description facility 2020-10-02 00:00:00 Ferritin [facility] [place] [facility] date description facility 2020-10-02 00:00:00 Folic Acid [facility] [place] [facility] date description facility 2020-10-02 00:00:00 Transferrin [facility] [place] [facility] date description facility 2020-10-02 00:00:00 CBC w/DIFF AND PLATELETS [facility] [place] [facility] date description facility 2020-10-02 00:00:[address] [facility] [place] [facility] date description facility 2020-10-02 00:00:00 Sed Rate [facility] [place] [facility] date description facility 2020-10-02 00:00:00 CRP [facility] [place] [facility] date description facility 2020-10-02 00:00:00 FLOW CYTOMETRY - [facility] Leukemia/Lymphoma [facility] [place] [facility] date description facility 2020-10-02 00:00[facility]00 [facility] [place] [facility] date description facility 2020-10-27 00:00:00 Iron & TIBC [facility] [place] [facility] date description facility 2020-10-27 00:00:00 COMPREHENSIVE METABOLIC PANEL [facility] [place] [facility] date description facility 2020-10-27 00:00:00 Ferritin [facility] [place] [facility] date description facility 2020-10-27 00:00:00 Transferrin [facility] [place] [facility] date description facility 2020-10-27 00:00:00 [facility] [place] [facility] Results Social History date description facility 2020-09-05 00:00:00 Current every day smoker [facility] [place] [facility] date description facility 2020-10-02 00:00:00 Current every day smoker [facility] [place] [facility] date description facility 2020-11-17 00:00:00 Current every day smoker [facility] [place] [facility] Social History date description facility 2020-09-05 00:00:00 Current every day smoker [facility] date description facility 2020-10-02 00:00:00 Current every day smoker [facility] date description facility 2020-11-17 00:00:00 Current every day smoker [facility] date description facility [phone]
[2020-11-26 09:29] LABS: EOSINOPHILS # (AUTO) 0.1 10^3/uL (0.0-0.7); EOSINOPHILS % (AUTO) 1.4 %; HGB - HEMOGLOBIN 7.4 g/dL (14.0-18.0); LYMPHOCYTES % (AUTO) 23.1 %; MEAN CORPUSCULAR HGB CONC 31.4 g/dL (32.0-36.0); MEAN CORPUSCULAR VOLUME 95.5 fL (80.0-94.0); MEAN PLATELET VOLUME 9.7 fL (7.4-11.4); MONOCYTES # (AUTO) 0.6 10^3/uL (0.0-1.0); MONOCYTES % (AUTO) 12.6 %; NEUTROPHILS # (AUTO) 2.8 10^3/uL (1.5-6.6); NEUTROPHILS % (AUTO) 62.7 %; PLT - PLATELET COUNT 231 10^3/uL (130-450); RED BLOOD COUNT 2.47 10^6/uL (4.70-6.10); RED CELL DISTRIBUTION WIDTH 16.9 % (12.0-15.0); WHITE BLOOD COUNT 4.4 x10^3/uL (4.8-10.8)
[2020-11-26 10:00] LABS: ALBUMIN 3.5 g/dL (3.2-5.5); ALBUMIN/GLOBULIN RATIO 1.7 (1.0-2.2); BILIRUBIN,TOTAL 0.6 mg/dL (0.2-1.0); CALCIUM 8.7 mg/dL (8.5-10.3); CREATININE 1.1 mg/dL (0.6-1.2); TOTAL PROTEIN 5.6 g/dL (6.7-8.2)
== END 2020-11-26 09:18 | disposition home or self-care (01) ==
LOC: LAB 09:17
PROVIDERS: ATTEND Internal Medicine Rheumatology
DX: M05.79 Rheumatoid arthritis with rheumatoid factor of multiple sites without organ or systems involvement (principal); Z79.899 Other long term (current) drug therapy
CPT/HCPCS: 36415; 80053; 85025

== ENCOUNTER 2020-12-03 08:00 | Outpatient (CLI) | payer MEDICARE, OTHER ==
[2020-12-03 10:22] LABS: BASOPHILS % (AUTO) 0.3 %; EOSINOPHILS % (AUTO) 1.1 %; HGB - HEMOGLOBIN 7.8 g/dL (14.0-18.0); LYMPHOCYTES # (AUTO) 0.8 10^3/uL (1.5-3.5); LYMPHOCYTES % (AUTO) 21.3 %; MEAN CORPUSCULAR HEMOGLOBIN 27.9 pg (27.0-31.0); MEAN CORPUSCULAR HGB CONC 30.1 g/dL (32.0-36.0); MEAN CORPUSCULAR VOLUME 92.5 fL (80.0-94.0); MEAN PLATELET VOLUME 9.8 fL (7.4-11.4); MONOCYTES # (AUTO) 0.5 10^3/uL (0.0-1.0); MONOCYTES % (AUTO) 14.8 %; NEUTROPHILS # (AUTO) 2.2 10^3/uL (1.5-6.6); NEUTROPHILS % (AUTO) 62.2 %; PLT - PLATELET COUNT 223 10^3/uL (130-450); RED CELL DISTRIBUTION WIDTH 18.8 % (12.0-15.0); WHITE BLOOD COUNT 3.6 x10^3/uL (4.8-10.8)
== END 2020-12-03 23:59 | disposition home or self-care (01) ==
LOC: LAB 08:00
PROVIDERS: ATTEND Internal Medicine
DX: D64.9 Anemia, unspecified (principal)
CPT/HCPCS: 36415; 85025

== ENCOUNTER 2020-12-10 10:34 | Outpatient (CLI) | payer MEDICARE, OTHER ==
[2020-12-10 10:56] LABS: EOSINOPHILS % (AUTO) 0.6 %; HGB - HEMOGLOBIN 7.9 g/dL (14.0-18.0); LYMPHOCYTES # (AUTO) 0.7 10^3/uL (1.5-3.5); LYMPHOCYTES % (AUTO) 20.2 %; MEAN CORPUSCULAR HEMOGLOBIN 27.9 pg (27.0-31.0); MEAN CORPUSCULAR VOLUME 92.9 fL (80.0-94.0); MONOCYTES # (AUTO) 0.4 10^3/uL (0.0-1.0); MONOCYTES % (AUTO) 12.3 %; NEUTROPHILS # (AUTO) 2.3 10^3/uL (1.5-6.6); NEUTROPHILS % (AUTO) 66.6 %; PLT - PLATELET COUNT 233 10^3/uL (130-450); RED BLOOD COUNT 2.83 10^6/uL (4.70-6.10); RED CELL DISTRIBUTION WIDTH 19.7 % (12.0-15.0); WHITE BLOOD COUNT 3.4 x10^3/uL (4.8-10.8)
[2020-12-10 11:13] LABS: ALBUMIN 3.6 g/dL (3.2-5.5); ALBUMIN/GLOBULIN RATIO 2.6 (1.0-2.2); BILIRUBIN,TOTAL 0.7 mg/dL (0.2-1.0); CALCIUM 8.9 mg/dL (8.5-10.3); CREATININE 1.3 mg/dL (0.6-1.2)
== END 2020-12-10 10:35 | disposition home or self-care (01) ==
LOC: LAB 10:34
PROVIDERS: ATTEND Internal Medicine Rheumatology
DX: M05.79 Rheumatoid arthritis with rheumatoid factor of multiple sites without organ or systems involvement (principal); Z79.899 Other long term (current) drug therapy
CPT/HCPCS: 36415; 80053; 85025

== ENCOUNTER 2020-12-17 08:00 | Outpatient (CLI) | payer MEDICARE, OTHER ==
[2020-12-17 12:27] LABS: BASOPHILS % (AUTO) 0.3 %; EOSINOPHILS % (AUTO) 0.7 %; HGB - HEMOGLOBIN 7.1 g/dL (14.0-18.0); LYMPHOCYTES # (AUTO) 0.6 10^3/uL (1.5-3.5); LYMPHOCYTES % (AUTO) 18.1 %; MEAN CORPUSCULAR HGB CONC 29.2 g/dL (32.0-36.0); MEAN CORPUSCULAR VOLUME 92.4 fL (80.0-94.0); MEAN PLATELET VOLUME 10.4 fL (7.4-11.4); MONOCYTES # (AUTO) 0.4 10^3/uL (0.0-1.0); MONOCYTES % (AUTO) 11.8 %; NEUTROPHILS # (AUTO) 2.1 10^3/uL (1.5-6.6); NEUTROPHILS % (AUTO) 68.8 %; PLT - PLATELET COUNT 217 10^3/uL (130-450); RED BLOOD COUNT 2.63 10^6/uL (4.70-6.10); RED CELL DISTRIBUTION WIDTH 20.1 % (12.0-15.0)
[2020-12-17 12:42] LABS: PLATELET ESTIMATE, MANUAL NORMAL (130-450,000) (NORMAL); PLATELET MORPHOLOGY NORMAL APPEARANCE (NORMAL)
[2020-12-17 13:28] LABS: ALBUMIN 3.4 g/dL (3.2-5.5); BILIRUBIN,TOTAL 0.5 mg/dL (0.2-1.0); CALCIUM 8.7 mg/dL (8.5-10.3); CREATININE 1.7 mg/dL (0.6-1.2); TOTAL PROTEIN 3.5 g/dL (6.7-8.2)
== END 2020-12-17 23:59 | disposition home or self-care (01) ==
LOC: LAB 08:00
PROVIDERS: ATTEND Internal Medicine Rheumatology
DX: M05.79 Rheumatoid arthritis with rheumatoid factor of multiple sites without organ or systems involvement (principal); Z79.899 Other long term (current) drug therapy
CPT/HCPCS: 36415; 80053; 85025

== ENCOUNTER 2021-01-06 15:03 | Emergency (ER) | payer MEDICARE, OTHER ==
[2021-01-06] MEDS ORDERED: FUROSEMIDE 40 MG/4 ML VIAL IVP STA (15:50)
[2021-01-06 16:21] LABS: EOSINOPHILS % (AUTO) 0.4 %; HGB - HEMOGLOBIN 7.5 g/dL (14.0-18.0); LYMPHOCYTES # (AUTO) 0.7 10^3/uL (1.5-3.5); LYMPHOCYTES % (AUTO) 26.6 %; MEAN CORPUSCULAR HEMOGLOBIN 27.3 pg (27.0-31.0); MEAN CORPUSCULAR HGB CONC 30.1 g/dL (32.0-36.0); MEAN CORPUSCULAR VOLUME 90.5 fL (80.0-94.0); MEAN PLATELET VOLUME 11.6 fL (7.4-11.4); MONOCYTES # (AUTO) 0.4 10^3/uL (0.0-1.0); MONOCYTES % (AUTO) 14.3 %; NEUTROPHILS # (AUTO) 1.5 10^3/uL (1.5-6.6); NEUTROPHILS % (AUTO) 58.3 %; PLT - PLATELET COUNT 214 10^3/uL (130-450); RED BLOOD COUNT 2.75 10^6/uL (4.70-6.10); RED CELL DISTRIBUTION WIDTH 20.4 % (12.0-15.0); WHITE BLOOD COUNT 2.6 x10^3/uL (4.8-10.8)
--- NOTE | 2021-01-06 16:31 | XRAY Report ---
PROCEDURE: Chest 1 View X-Ray INDICATIONS: dyspnea, weight gain TECHNIQUE: One view of the chest was acquired. COMPARISON: 09/19/2020 FINDINGS: Surgical changes and devices: Multiple median sternotomy wires are intact.. Lungs and pleura: Mild diffuse interstitial prominence and suggestion of mild bronchovascular conges tion. There is also mild blunting of the right costophrenic angle and fluid within the right minor fi ssure. No focal consolidations. No pneumothorax. Mediastinum: Mediastinal contours appear stable. Heart size is enlarged. Bones and chest wall: No suspicious bony lesions. Overlying soft tissues appear unremarkable. IMPRESSION: Cardiomegaly with findings suggestive of early/mild pulmonary edema or CHF. Reviewed by: Rob Pablo MD on 01/06/2021 4:30 PM PST Approved by: Rob Pablo MD on 01/06/2021 4:30 PM [facility] Station ID: [id number]
[2021-01-06 16:35] LABS: ALBUMIN 3.5 g/dL (3.2-5.5); ALBUMIN/GLOBULIN RATIO 4.4 (1.0-2.2); BILIRUBIN,TOTAL 1.1 mg/dL (0.2-1.0); CALCIUM 8.9 mg/dL (8.5-10.3); CREATININE 1.5 mg/dL (0.6-1.2); TOTAL PROTEIN 4.3 g/dL (6.7-8.2)
[2021-01-06 16:44] LABS: PLATELET ESTIMATE, MANUAL NORMAL (130-450,000) (NORMAL); PLATELET MORPHOLOGY 1+ LARGE PLATELETS (NORMAL)
[2021-01-06 17:16] LABS: BILIRUBIN,URINE NEGATIVE (NEGATIVE); GLUCOSE, URINE (UA) NEGATIVE (NEGATIVE); KETONES,URINE (UA) NEGATIVE (NEGATIVE); LEUKOCYTE ESTERASE, URINE TRACE (NEGATIVE); NITRITE,URINE NEGATIVE (NEGATIVE); OCCULT BLOOD,URINE NEGATIVE (NEGATIVE); PROTEIN,URINE NEGATIVE (NEGATIVE); UROBILINOGEN,URINE 0.2 (NORMAL) E.U./dL (NORMAL)
[2021-01-06 17:17] LABS: CLARITY,URINE CLEAR (CLEAR)
[2021-01-06 17:19] LABS: BACTERIA,URINE None Seen /HPF (None Seen); MUCUS,URINE Few Strands; RBC,URINE 0-5 /HPF (0-5); SQUAMOUS EPITHELIAL CELL,UR RARE Squamous (<= Few)
[2021-01-06] MEDS ORDERED: POTASSIUM CHLORIDE 10 MEQ CAPSULE PO STA (17:56)
--- NOTE | 2021-01-06 18:22 | ED Physician Documentation ---
PD HPI MALE - Stated complaint Stated Complaint: "INTERNAL SWELLING" - Chief complaint Chief Complaint: General - History obtained from History obtained from: Patient - History of Present Illness Timing - onset: How many days ago (3) Timing - duration: Days (3) Timing - details: Gradual onset, Still present Associated symptoms: Scrotal swelling (has noted increased leg edema, about 10 lb weight gain, and scrotal swelling over the past several days.) Similar symptoms before: Has not had sx before (has had CHF and fluid retention but not involving scrotal swelling in the past.) Recently seen: Clinic (went to [facility] and referred to ER.) Review of Systems Constitutional: denies: Fever, Chills Nose: denies: Rhinorrhea / runny nose, Congestion Throat: denies: Sore throat Cardiac: reports: Pedal edema. denies: Chest pain / pressure Respiratory: reports: Dyspnea. denies: Cough, Wheezing GI: denies: Abdominal Pain, Nausea, Vomiting, Diarrhea : denies: Dysuria, Hesitancy Skin: denies: Rash Musculoskeletal: reports: Extremity swelling Neurologic: denies: Focal weakness, Numbness PD PAST MEDICAL HISTORY - Past Medical History Past Medical History: Yes Cardiovascular: Congestive heart failure, Hypertension, High cholesterol, Coronary artery disease, [place], Atrial flutter Respiratory: None Neuro: None Endocrine/Autoimmune: None GI: GERD, Hiatal hernia, Colon polyps : Benign prostate hypertrophy HEENT: Chronic vision loss Psych: None Musculoskeletal: Osteoarthritis, Rheumatoid arthritis, Chronic back pain Derm: Other Other Past Medical History: anemia with marrow insufficiency; scheduled for bone marrow biopsy Tuesday (in 3 days). - Past Surgical History Past Surgical History: Yes General: Colonoscopy Ortho: Knee replacement Cardiovascular: CABG, Coronary stent HEENT: Cataracts, Tonsil/Adenoidectomy - Present Medications Home Medications: Ambulatory Orders Medication Instructions Recorded Confirmed lisinopriL [Zestril] 20 mg PO BID 01/18/14 12/23/20 Finasteride 5 mg PO QDAC 03/01/14 12/23/20 Furosemide [Lasix] 40 mg PO DAILY 03/01/14 12/23/20 Rosuvastatin [Crestor] 10 mg PO DAILY 03/04/14 12/23/20 sulfaSALAzine [Azulfidine] 1,500 mg PO BID 03/04/14 12/23/20 Carvedilol [Coreg] 25 mg PO BID 06/12/14 12/23/20 hydrALAZINE [Apresoline] 25 mg PO BID 09/10/16 12/23/20 Aspirin [Adult Aspirin Regimen] 81 mg PO DAILY 09/11/19 12/23/20 Cetirizine [ZyrTEC] 10 mg PO DAILY 08/28/20 12/23/20 Nitroglycerin [Nitrostat] 0.4 mg SL Q5MIN PRN 08/28/20 12/23/20 Pantoprazole [Protonix] 40 mg PO DAILY 08/28/20 12/23/20 Ferrous Gluconate 240 mg PO BID #60 tablet 08/31/20 12/23/20 Apixaban [Eliquis] 10 mg PO BID #72 tablet 09/01/20 12/23/20 Furosemide [Lasix] 80 mg PO DAILY #7 tablet 09/01/20 12/23/20 - Allergies Allergies/Adverse Reactions: Allergies Allergy/AdvReac Type Severity Reaction Status Date / Time atorvastatin calcium * Allergy Severe Anaphylaxis Verified 01/06/21 15:11 [From Lipitor] amoxicillin [Amoxicillin] Allergy Intermediate Rash Verified 01/06/21 15:11 - Social History Does the pt smoke?: No Smoking Status: Never smoker Does the pt drink ETOH?: No Does the pt have substance abuse?: No - Immunizations Immunizations are current?: Yes - POLST Patient has POLST: No PD ED PE NORMAL - Vitals Vital signs reviewed: Yes - General General: Alert and oriented X 3, No acute distress, Well developed/nourished - HEENT HEENT: Pharynx benign - Neck Neck: Supple, no meningeal sign, No adenopathy - Cardiac Cardiac: RRR, No murmur - Respiratory Respiratory: No: Clear bilaterally (fine crackles at the bases. Mild tachypnea. Able to talk in sentences. ) - Abdomen Abdomen: Normal bowel sounds, Soft, Non tender - Male Male : Other (scrotum and penile shaft with edema without redness/tenderness. Not swollen at glans. No testicular tenderness. ) - Rectal Rectal: Deferred - Back Back: No CVA TTP - Derm Derm: Normal color, Warm and dry - Extremities Extremities: No calf tenderness / cord, Other (2+ edema in both lower legs to knees. ) - Neuro Neuro: Alert and oriented X 3, No motor deficit, Normal speech Results - Vitals Vitals: Vital Signs - 24 hr 01/06/21 01/06/21 01/06/21 15:11 15:22 17:46 Temperature 36.6 C 36.6 C Heart Rate 63 63 64 Respiratory 20 20 19 Rate Blood Pressure 143/77 H 143/77 H 166/71 H O2 Saturation 98 98 100 01/06/21 18:31 Temperature 36.2 C L Heart Rate 70 Respiratory 21 Rate Blood Pressure 141/65 H O2 Saturation 98 Oxygen O2 Source [With Activity] Room air O2 Source [Without Activity] Room air O2 Source Room air - EKG (time done) 15:56 Rate: Rate (enter#) (60) Rhythm: NSR Driscoll: Normal Intervals: Wide QRS Ischemia: Normal ST segments. No: ST elevation c/w ischemia, ST depression - Labs Labs: Laboratory Tests 01/06/21 01/06/21 01/06/21 16:00 16:00 16:00 WBC 2.6 L RBC 2.75 L Hgb 7.5 L Hct 24.9 L MCV 90.5 MCH 27.3 MCHC 30.1 L RDW 20.4 H Plt Count 214 MPV 11.6 H Neut # (Auto) 1.5 Lymph # (Auto) 0.[address] # (Auto) 0.4 Eos # (Auto) 0.0 Baso # (Auto) 0.0 Absolute Nucleated RBC 0.00 Nucleated RBC % 0.0 Manual Slide Review Indicated Platelet Estimate NORMAL (130-450,000) Platelet Morphology 1+ LARGE PLATELETS RBC Morph Micro Appear 1+ SCHISTOCYTES Sodium 143 Potassium 3.1 L Chloride 104 Carbon Dioxide 27 Anion Gap 12.0 BUN 32 H Creatinine 1.5 H Estimated GFR (MDRD) 44 L Glucose 119 H Calcium 8.9 Magnesium 2.0 Total Bilirubin 1.1 H AST 44 H ALT 29 Alkaline Phosphatase 40 L B-Natriuretic Peptide 704 H Total Protein 4.3 L Albumin 3.5 Globulin 0.8 L Albumin/Globulin Ratio 4.4 H Urine Color Urine Clarity Urine pH Ur Specific Kila Urine Protein Urine Glucose (UA) Urine Ketones Urine Occult Blood Urine Nitrite Urine Bilirubin Urine Urobilinogen Ur Leukocyte Esterase Urine RBC Urine WBC Ur Squamous Epith Cells Urine Bacteria Urine Mucus Ur Microscopic Review Urine Culture Comments 01/06/21 16:45 WBC RBC Hgb Hct MCV MCH MCHC RDW Plt Count MPV Neut # (Auto) Lymph # (Auto) [facility] # (Auto) Eos # (Auto) Baso # (Auto) Absolute Nucleated RBC Nucleated RBC % Manual Slide Review Platelet Estimate Platelet Morphology RBC Morph Micro Appear Sodium Potassium Chloride Carbon Dioxide Anion Gap BUN Creatinine Estimated GFR (MDRD) Glucose Calcium Magnesium Total Bilirubin AST ALT Alkaline Phosphatase B-Natriuretic Peptide Total Protein Albumin Globulin Albumin/Globulin Ratio Urine Color YELLOW Urine Clarity CLEAR Urine pH 6.0 Ur Specific Kila 1.020 Urine Protein NEGATIVE Urine Glucose (UA) NEGATIVE Urine Ketones NEGATIVE Urine Occult Blood NEGATIVE Urine Nitrite NEGATIVE Urine Bilirubin NEGATIVE Urine Urobilinogen 0.2 (NORMAL) Ur Leukocyte Esterase TRACE H Urine RBC 0-5 Urine WBC 0-3 Ur Squamous Epith Cells RARE Squamous Urine Bacteria None Seen Urine Mucus Few Strands Ur Microscopic Review INDICATED Urine Culture Comments INDICATED - Rads (name of study) chest xray Radiology: Prelim report reviewed (intestitial prominence c/w edema. ), See rad report PD MEDICAL DECISION MAKING - ED course Complexity details: reviewed results (labs are about baseline. Hgb not at transfusion level, though might consider exception given his CHF. However he has [facility] appt in 2 days so he prefers to wait and see there. He does diurese good amount after iv lasix here. He says he feels like less swelling abd and lungs already. He prefers home. ), considered differential (scrotum with edema, and shaft foreskin. No redness nor tender; does not seem cellulitic. Seems part of general edema of legs/abd/with some lung wetness. ), d/w patient Departure - Departure Disposition: Home, Self Care Clinical Impression: Edema of scrotum, Generalized edema Congestive heart failure Qualifiers: Heart failure type: unspecified Heart failure chronicity: acute on chronic Qualified Code(s): I50.9 - Heart failure, unspecified Anemia Qualifiers: Anemia type: unspecified type Qualified Code(s): D64.9 - Anemia, unspecified Condition: Stable Record reviewed to determine appropriate education?: Yes Instructions: ED CHF General Follow-Up: Skyler Jaquez MD [Primary Care Provider] - Evan Israel MD [Provider Admit Priv/Credential] - Comments: Double your Lasix to 80 mg for the next 2 days. Follow-up on in the [facility] clinic with Dr. Israel as planned. I would anticipate improvement in your edema with the extra diuretic over the next couple of days. Return if worsening despite this. Discharge Date/Time: 01/06/21 18:36
[2021-01-06 18:32] VITALS: BP 141/65
== END 2021-01-06 18:36 | disposition home or self-care (01) ==
LOC: ED 15:03
DX: N50.89 Other specified disorders of the male genital organs (principal); I11.0 Hypertensive heart disease with heart failure; I50.9 Heart failure, unspecified; D64.9 Anemia, unspecified; Z95.1 Presence of aortocoronary bypass graft; Z79.01 Long term (current) use of anticoagulants
CPT/HCPCS: 36415; 71045; 80053; 81001; 83735; 83880; 85025; 87086; 93005; 96374; 99284; A9270; 81003; 86850; 86900; 86901

== ENCOUNTER 2021-01-15 08:00 | Outpatient (CLI) | payer MEDICARE, OTHER ==
[2021-01-16 16:08] LABS: FECAL OCCULT BLOOD (FIT) POSITIVE (NEGATIVE)
== END 2021-01-15 23:59 | disposition home or self-care (01) ==
LOC: LAB.R 08:00
PROVIDERS: ATTEND Internal Medicine
DX: D64.9 Anemia, unspecified (principal)
CPT/HCPCS: 82274

== ENCOUNTER 2021-01-19 11:28 | Outpatient (CLI) | payer MEDICARE, OTHER ==
[2021-01-19 11:52] LABS: HCT - HEMATOCRIT 27.3 % (42.0-52.0); HGB - HEMOGLOBIN 8.3 g/dL (14.0-18.0); LYMPHOCYTES # (AUTO) 0.6 10^3/uL (1.5-3.5); LYMPHOCYTES % (AUTO) 19.7 %; MEAN CORPUSCULAR HGB CONC 30.4 g/dL (32.0-36.0); MEAN CORPUSCULAR VOLUME 92.2 fL (80.0-94.0); MONOCYTES # (AUTO) 0.4 10^3/uL (0.0-1.0); PLT - PLATELET COUNT 182 10^3/uL (130-450); RED BLOOD COUNT 2.96 10^6/uL (4.70-6.10); RED CELL DISTRIBUTION WIDTH 18.2 % (12.0-15.0); WHITE BLOOD COUNT 3.1 x10^3/uL (4.8-10.8)
[2021-01-19 12:01] LABS: ALBUMIN 3.5 g/dL (3.2-5.5); ALBUMIN/GLOBULIN RATIO 2.9 (1.0-2.2); BILIRUBIN,TOTAL 0.9 mg/dL (0.2-1.0); CREATININE 1.4 mg/dL (0.6-1.2); POTASSIUM 3.6 mmol/L (3.5-5.0); TOTAL PROTEIN 4.7 g/dL (6.7-8.2)
== END 2021-01-19 11:29 | disposition home or self-care (01) ==
LOC: LAB 11:28
PROVIDERS: ATTEND Internal Medicine Rheumatology
DX: M05.79 Rheumatoid arthritis with rheumatoid factor of multiple sites without organ or systems involvement (principal); Z79.899 Other long term (current) drug therapy
CPT/HCPCS: 36415; 80053; 85025